=== PATIENT | male | born 1955 | race Caucasian/White ===

== ENCOUNTER → 2022-01-27 14:37 | Outpatient (CLI) | payer MEDICARE, OTHER, SELFPAY ==
[2022-01-27 15:42] LABS: Add Manual Diff / Slide Review NO; Basophils Absolute Auto 100 /uL (0-100); Eosinophils Absolute Auto 200 /uL (0-450); Eosinophils Percent Auto 3.3 % (2-4); Hematocrit 42.8 % (41-53); Hemoglobin 14.7 g/dL (13.5-17.5); Lymphocytes Absolute Auto 1700 /uL (1100-4500); Mean Corpuscular HGB Conc 34.3 % (30-36); Mean Corpuscular Hemoglobin 31.9 PG (26-34); Mean Corpuscular Volume 93.1 fL (80-100); Monocytes Absolute Auto 500 /uL (0-900); Monocytes Percent Auto 8.1 % (3-14); Neutrophils Absolute Auto 4200 /uL (1500-7000); Neutrophils Percent Auto 62.6 % (50-75); Platelet Count 385 X10^3/uL (150-400); Red Cell Distribution Width 13.7 % (11.6-14.8); White Blood Cell Count 6.6 X10^3/uL (4.5-11.0)
[2022-01-27 16:13] LABS: BUN Creatinine Ratio 15.2 (6-22); Blood Urea Nitrogen 14 mg/dL (9-20); Calcium 9.1 mg/dL (8.4-10.2); Carbon Dioxide 27 mmol/L (22-32); Chloride 105 mmol/L (98-107); Estimated Glomerular Filt Rate > 60 mL/min (>60); Glucose 94 mg/dL (80-110); HEMOLYSIS < 15 (0-50); Potassium 3.4 mmol/L (3.4-5.1); Sodium 139 mmol/L (137-145)
== END ==
PROVIDERS: Referring Provider Orthopaedic Surgery Orthopaedic Surgery of the Spine; Visit Provider Orthopaedic Surgery Orthopaedic Surgery of the Spine
DX: Z01.818 Encounter for other preprocedural examination (principal); Z01.812 Encounter for preprocedural laboratory examination
CPT/HCPCS: 36415; 80048; 85025; 93005; 93010

== ENCOUNTER → 2022-04-15 11:54 | Outpatient (CLI) | payer MEDICARE, OTHER, SELFPAY ==
[2022-04-15 12:59] LABS: Add Manual Diff / Slide Review NO; Basophils Absolute Auto 0 /uL (0-100); Basophils Percent Auto 0.6 % (0-2); Eosinophils Absolute Auto 200 /uL (0-450); Eosinophils Percent Auto 3.2 % (2-4); Hematocrit 45.4 % (41-53); Lymphocytes Absolute Auto 1400 /uL (1100-4500); Lymphocytes Percent Auto 21.5 % (25-40); Mean Corpuscular HGB Conc 33.1 % (30-36); Mean Corpuscular Hemoglobin 31.3 PG (26-34); Mean Corpuscular Volume 94.6 fL (80-100); Monocytes Absolute Auto 500 /uL (0-900); Neutrophils Absolute Auto 4500 /uL (1500-7000); Neutrophils Percent Auto 67.7 % (50-75); Platelet Count 388 X10^3/uL (150-400); Red Blood Cell Count 4.79 X10^6/uL (4.5-5.9); Red Cell Distribution Width 13.9 % (11.6-14.8); White Blood Cell Count 6.7 X10^3/uL (4.5-11.0)
[2022-04-15 13:15] LABS: Blood Urea Nitrogen 20 mg/dL (9-20); Calcium 9.3 mg/dL (8.4-10.2); Carbon Dioxide 29 mmol/L (22-32); Chloride 103 mmol/L (98-107); Estimated Glomerular Filt Rate > 60 mL/min (>60); Glucose 93 mg/dL (80-110); HEMOLYSIS < 15 (0-50); Potassium 4.4 mmol/L (3.4-5.1); Sodium 139 mmol/L (137-145)
== END ==
PROVIDERS: Referring Provider Orthopaedic Surgery Orthopaedic Surgery of the Spine; Visit Provider Orthopaedic Surgery Orthopaedic Surgery of the Spine
DX: Z01.812 Encounter for preprocedural laboratory examination (principal); M54.00 Panniculitis affecting regions of neck and back, site unspecified
CPT/HCPCS: 36415; 80048; 85025

== ENCOUNTER → 2022-05-01 12:18 | Outpatient (CLI) | payer MEDICARE, OTHER, SELFPAY ==
[2022-05-01 14:24] LABS: COVID19 -Nasal RAPID Negative (Negative)
== END ==
PROVIDERS: PCP Internal Medicine; Referring Provider Orthopaedic Surgery Orthopaedic Surgery of the Spine; Visit Provider Orthopaedic Surgery Orthopaedic Surgery of the Spine
DX: Z20.822 Contact with and (suspected) exposure to COVID-19 (principal)
CPT/HCPCS: 87635; C9803

== ENCOUNTER 2022-05-04 06:19 | Inpatient (IN) | payer MEDICARE, OTHER, SELFPAY ==
[2022-04-22 12:00] VITALS: BMI 22.6
[2022-05-04] VITALS (9 sets, daily range): BP systolic 121–160; BP diastolic 62–92; PULSE 95–124; RESP 14–21; TEMP 36.3–37.2; O2SAT 91–99; BMI 22.6
[2022-05-04] MEDS: LACTATED RINGERS 1,000 ML 42 ML IV ×3 (07:11→10:52)
--- NOTE | 2022-05-04 07:45 | PM.PREOP ---
Pre-operative Note COVID-19 COVID-19 status: Negative Result date/Date tested (Pos, Neg/Pending): 05/03/22 Criteria for continued procedure: Expected advancement of disease process, Possibility delay results in more complex future surgery or treatment, Increased loss of function, Continuing or worsening of significant or severe pain, Deterioration of the patient's condition or overall health and Delay expected to result in less-positive ultimate med/surg outcome Interval Note History & Physical reviewed/Exam performed by Physician: Yes Changes to H&P: No
[2022-05-04] MEDS: CEFAZOLIN 2 GM/100 ML PREMIX 100 ML IV (07:57)
--- NOTE | 2022-05-04 08:30 | SUR.OPER ---
Prone on spine table, head in foam head support, padded chest and pelvic supports, gel pad at knees, lower legs supported by pillows; nipples, genitalia and toes free of pressure, arms secured on foam padded arm boards at <90 degrees abduction. Tape over blanket at thigh secured to table.
[2022-05-04] MEDS: BUPIVACAINE 0.25% (PF) 30 ML, EPINEPHrine 0.3 MG INJ (08:39)
[2022-05-04] MEDS: BUPIVACAINE LIPOSOME 266 MG/20 ML VIAL INJ (08:40)
--- NOTE | 2022-05-04 12:12 | DI.RAD.S_ITS ---
PROCEDURE: XR LUMBAR SPINE 2-3V INDICATIONS: L4-5, L5-S1 TLIF TECHNIQUE: Two intraoperative fluoroscopic views of the lumbar spine were acquired. COMPARISON: None. FINDINGS: Fluoroscopy was used for hardware and disc spacer assessment. Bilateral transpedicular screws are seen in L4 and S1 and a unilateral pedicular screw at L5. Disc spacers appear in appropriate position. Hardware is intact. IMPRESSION: Intraoperative fluoroscopy for L4-5 L5-S1 TLIF. Dictated by: Yary Copeland M.D. on 05/04/2022 at 16:58 Approved by: Yary Copeland M.D. on 05/04/2022 at 16:59
--- NOTE | 2022-05-04 12:16 | P.OP_ITS ---
Operative Date/Time/Diagnoses Date of procedure: 05/04/22 Time of procedure: 07:45 Pre-op diagnosis: 1. L3-4, L4-5 spinal stenosis 2. Lumbar scoliosis 3. Lumbar spondylosis with radiculopathy Post-op diagnosis: same Procedure & Clinicians Procedure: 1. L3-4, L4-5 Postero-lateral and posterior interbody fusion 2. L3-4, L4-5 interbody cage placement. 3.L3-4, L4-5 decompressive laminectomy with bilateral facetecomies 4. L3-4, L4-5 Posterior segmental instrumentation 5. [place] of bone marrow from iliac crest 6. Utilization of microsurgical technique and operating microscope 7. Utilization of robotic assisted navigation Same procedure as scheduled: Yes Indications: Patient has been having chronic back pain and worsening lumbar radiculopathy. Patient failed multiple conservative management with worsening pain weakness and numbness in his lower extremity. Patient has been having difficulty performing activity of daily living. After discussing risks benefits of treatment options, patient elected proceed with surgery. Surgeon: Celsa Church Floor Representative: Maribel King Click Yes if Unassisted: No Anesthesia Type: General Operative Notes Closure Type: primary Prosthetic devices, grafts, tissues, transplants, or devices: Globus CREO MIS screws, Rise cages Applied: catheter Estimated Blood Loss (mL): 100 Blood products transfused: none Procedure in detail: Patient was seen in the preoperative area. Risks and benefits of the surgery was discussed with the patient. Informed consent was obtained from the patient and placed in the chart. Surgical site was marked. Patient was taken to the operative room. General anesthesia was administered. Prophylactic antibiotic was given to the patient less than 30 min before the incision was made. Patient was placed into a prone position on the Charles table. Patient's back was then prepped and draped in the sterile fashion. Time-out was performed at this time. After patient was prepped and draped, patient's PSIS was palpated and marked bilaterally. Small 1 cm incision was made over the PSIS for placement of the reference probes. Two trocar was placed into the PSIS 1 on each side. The reference probe was attached to the trocar of the reference apparatus. At this time the C-arm imaging was used to confirm AP and lateral of L3, L4-L5 vertebrae and merged the C-arm imaging using the [employer] robotic navigation system with the CT of the lumbar spine. After successful merging was completed and confirmed, skin marker was used to raul out the skin incision using the [employer]Parent robotic arm. Bilateral incision was made at this time. Pre templated trajectory was used and guided using the [employer] robotic navigation system for bilateral L3 L4, L5 pedicle screw placement. This was done by using the robotic arm to guide the high-speed bur to make a cortical ent ry point. Next a drill was placed also using the robotic arm and guided using the navigation system drilling partially through bilateral L3, L4, L5 pedicles. Next L3, L4, L5 pedicle screws it was pre templated and measured was placed onto the power otr flatbed driver and inserted into the pedicles bilaterally. After all 6 screws were placed C-arm imaging was taken of both AP and lateral to confirm the plac ement. Excellent placement of the screws were confirmed and a matched precisely with the pre planned screw placement using the navigation system. Patient has transitional level with rudimentary disc being named L5-S1 per radiology report. The nomenclature will be consistently used for this procedure. Diffusion is performed at the 2 most caudal multiple levels being called L3-4 L4-5. MARs retractor was inserted using [employer] ABivation guidence. Globus MARS retractors was placed inside the incision and docked onto the L3, L4 lamina. Using microsurgical technique and operating microscope, a L3, L4 laminectomy and L3-4, L4-5 facetectomy was performed using a Kerrison rongeur. Patient was found have severe lateral recess and neural foramen stenosis which was fully decompressed after the laminectomy facetectomy. More than 75% of the facets were removed during the process of decompression rendering L3-4, L4-5 level grossly unstable and required a fusion procedure at the same time. The disc space at L3-4, L4-5 was identified, and a total diskectomy was performed at L3- 4, L4-5 level. The endplates were decorticated using a rasp and shaver. The total diskectomy and decortication was performed at L3-4, L4-5 level in order to to accomplish a L3-4, L4-5 fusion. The local bone from the laminectomy and facetectomy was saved for local bone grafting. After the total diskectomy and decortication was completed, Trifecta bone graft material was combined with local bone that was harvested earlier. During the right-sided facetectomy and laminectomy, there was a small dural tear that was created using the Kerrison at the L3-4 level. There is minimal amount of CSF leakage. DuraGen and Tisseel was used to patch the dural defect. There is no CSF leakage throughout the procedure. At this time, a separate skin is incision was made over the iliac crest. A Jamshidi needle was inserted into the iliac crest through a separate skin incision. 5 cc of bone marrow aspiration was obtained through the separate skin incision using a Jamshidi needle from the iliac crest. The bone marrow aspiration was combined with local bone and the Trifecta bone grafting material. The bone grafting material was placed into the L3-4, L4-5 interbody space along with expandable cages. One cage each was inserted into the L3-4 L4-5 interbody space along with bone graft material. The cage was expanded to its maximum height using the torque limiting screwdriver. The disc preparation as well as the cage insertion were also performed under navigation guidance. After the cage was placed, AP and lateral C-arm imaging was taken to confirm placement of the cage and excellent position was confirmed. Globus MARS retractor was inserted and docked onto the L3-4, L4-5 posterolateral gutter on the right side. Using the power drill, posterior-lateral decortication was performed at L3-4, L4-5 level until bleeding cortical bone was identified. The remaining bone grafting material was placed into the L3-4, L4-5 posterior lateral gutter he order to accomplish posterolateral fusion at the L3- 4, L4-5 level. At this time the tulips were attached to the L3, L4-L5 pedicle screw shanks. After measuring the length of the rods, they were inserted into the tulips of the pedicle screws and locked in place using locking caps and torque limiting screwdriver bilaterally. Total 6 caps and 2 titanium rods was used in order to complete the posterior instrumentation construct. After all the hardware was placed, and confirmed with AP and lateral C-arm imaging, the wound was then irrigated with sterile normal saline and packed with Ray-Ernesto gauze for 3 min to accomplish hemostasis. After the gauze was removed the deep fascia was closed with #1 Vicryl suture. The subcutaneous layer was closed with 2-0 Vicryl. The skin was closed with skin clemente. Patient tolerated the procedure well. There were no complications. Neuro monitoring system was used to monitor patient's neurologic status thr oughout entire procedure. There was no disturbance of the neural monitoring signals throughout the case. Patient will be prophylactically placed into the foot flat position until tomorrow morning 6:00 a.m. Patient can then start to elevate his head of the bed as tolerated and perform physical therapy as tolerated. Complications: none Post-operative Condition: stable Disposition: PACU Plan for aftercare: Admit to inpatient hospital
[2022-05-04] MEDS: HYDROCODONE/ACET 5/325 TABLET 1 TAB PO (12:54)
[2022-05-04] MEDS: OXYCODONE IR 5 MG TABLET 10 MG PO ×2 (14:10→18:21)
[2022-05-04] MEDS: hydrOXYzine pamoate 25 MG CAPSULE PO (14:10)
[2022-05-04] MEDS: CLINDAMYCIN 600 MG/50 ML PIGGYBACK 50 MG IV ×2 (14:19→21:07)
[2022-05-04] MEDS: HYDROMORPHONE 0.5 MG INJ IV ×2 (16:23→21:06)
[2022-05-04] MEDS: ACETAMINOPHEN 325 MG TABLET 650 MG PO (16:23)
[2022-05-04] MEDS: PANTOPRAZOLE DR 20 MG TABLET PO (21:05)
[2022-05-04] MEDS: LORazepam 0.5 MG TABLET 0.25 MG PO (21:08)
[2022-05-05] VITALS (7 sets, daily range): BP systolic 126–132; BP diastolic 72–79; PULSE 74–130; RESP 17–20; TEMP 37–38.7; O2SAT 71–100
--- NOTE | 2022-05-05 00:38 | PC.NURSE ---
At approx 20:00, this RN was notified by ZAHIDA of rapid heart rate sustaining 130-140 >10 minutes. Regular rhythm, no history of tachycardia or afib, asymptomatic. BP, temp, RR all WNL. SPO2 95% on 2 L NC. +Circulation and sensation all four limbs. No signs of active bleeding. Pt extremely agitated on this RN's entrance. Pt upset about being unable to use personal nicotine lozenges. Prior shift offered nicotine patch, reported that patient refused. This RN asked if he would be interested in a patch- pt said no. This RN informed the pt that the on-call would be contacted about his rapid heart rate and would mention the nicotine lozenges, just in case. Pt upset about strict flat bedrest. This RN educated pt as well as possible, but patient resistant to listening and remained agitated. Pt states that he is going to be an asshole, that the doctors weren't adhering to the discussed pre-surgery treatment plan, and informed this RN of her incompetence. This RN informed the patient that there was a possibility that the doctor may order an EKG or telemetry or medications. Pt stated oh, more torture and informed this RN that he would refuse all additional care. This RN informed the patient that regardless of whether or not he accepted treatment, the on-call would have to be notified. On-call PAULIE was contacted at 20:20. Informed him of situation and patient's unwillingness to cooperate. Requested this RN attempt to order an EKG, and if obtained, a hospitalist consult would be ordered. Nicotine lozenges were denied d/t increased heart rate and post-op status. Pt once again refused EKG and other treatment. This RN sat down with patient and discussed current plan of care. After a long discussion, patient agreeable to certain interventions, including strict flat bedrest, pain medication, IV antibiotics, SPO2 and HR monitoring via vital signs machine only, and selected post-op medications. Refused SCDs, Q2T, medications for stooling. Pt in much better mood, and apologetic. On-call informed of refusal and subsequent vital signs. Heart rate slowly decreasing. At 0015, sustaining 90-95. Pt's O2 bumped up to 4L d/t desat during sleep. Pain controlled with current medication regime. Will continue to monitor.
[2022-05-05] MEDS: HYDROMORPHONE 0.5 MG INJ IV ×3 (01:48→16:54)
[2022-05-05] MEDS: hydrOXYzine pamoate 25 MG CAPSULE PO ×3 (01:48→16:56)
[2022-05-05] MEDS: ACETAMINOPHEN 325 MG TABLET 650 MG PO ×3 (04:23→20:15)
[2022-05-05 06:33] LABS: Hematocrit 38.7 % (41-53); Hemoglobin 13.3 g/dL (13.5-17.5)
--- NOTE | 2022-05-05 07:42 | PM.PNPO.1 ---
Subjective Subjective Date Patient Seen: 05/05/22 Time Patient Seen: 07:43 Interval history: Patient's pain is mild at rest. States his pain is more severe with any movement. Patient has not been up out of bed yet. Patient does not have anybody home available to assist him. Exam Vital Signs (past 8 hours): - 05/05/22 00:00 05/05/22 04:00 Temperature 99.6 F 98.6 F Pulse Rate 91 H 94 H Respiratory Rate 17 19 Blood Pressure 132/72 128/79 Pulse Oximetry 100 96 Oxygen Flow Rate 4 4 Oxygen Delivery Method Nasal Cannula Oxygen Flow Rate 4 Narrative Exam Narrative: 66-year-old male resting comfortably in bed in no apparent distress. Motor functions intact bilateral lower extremities. Sensation grossly intact to light touch bilateral lower extremities. Const General: cooperative and comfortable Nutritional Appearance: average body habitus Resp Effort & Inspection: normal respiratory effort and able to speak in complete sentences Objective Labs Result Diagrams: 05/05/22 06:18 Labs: Laboratory Results - last 24 hr 05/05/22 06:18 Hgb 13.3 L Hct 38.7 L PFSH Medical History Anxiety COPD (chronic obstructive pulmonary disease) Easy bruisability Eczema Emphysema of lung GERD (gastroesophageal reflux disease) HTN (hypertension) Kidney stones Nasal sinus polyp Panic attacks Sciatica Spinal stenosis Spondylolisthesis Thin skin Surgical History Cataract extraction status, left eye H/O vasectomy Hx of colonoscopy (03/2021) Hx of excision of Zenker's diverticulum (02/12/22) Hx of lithotripsy (01/14/22) Hx of tonsillectomy Social History household members: none Smoking Status: Former smoker alcohol intake: current Assessment & Plan Post-op Postoperative Procedures: Procedures Operation Date: 05/04/22 07:45 Actual Procedure Side Surgeon p L3-4, L4-5 TLIF w. posterior instrumentation-Robot Not Applicable Celsa Church MD Postoperative day: 1 Postoperative status narrative: Stable status post L3-L4, L4-L5 fusion Postoperative plan narrative: Mobilize with physical therapy, limit bending, twisting, lifting Discontinue Mcdermott catheter Multimodal pain management Disposition home likely 1-2 days. Quality VTE Deep Vein Thrombosis/Pulmonary Embolism Present on Admission: No
[2022-05-05] MEDS: PANTOPRAZOLE DR 20 MG TABLET PO ×2 (07:44→20:15)
[2022-05-05] MEDS: OXYCODONE IR 5 MG TABLET 10 MG PO ×5 (07:45→23:14)
[2022-05-05] MEDS: DOCUSATE 100 MG CAPSULE PO ×2 (07:45→20:15)
[2022-05-05] MEDS: TAMSULOSIN 0.4 MG CAPSULE PO (08:25)
[2022-05-05] MEDS: lisinopriL 5 MG TABLET 2.5 MG PO (08:26)
--- NOTE | 2022-05-05 08:51 | PT.IIE ---
Current Diagnoses Spondylolisthesis, lumbar region (05/04/22) Spinal stenosis, lumbar region with neurogenic claudication (05/04/22) Surgery Performed Operation Date: 05/04/22 07:45 Actual Procedures p L3-4, L4-5 TLIF w. posterior instrumentation-Robot(Not Applicable) - Celsa Church MD Surgical History (Last Reviewed 05/05/22 @ 07:44 by Ramiro Rodriguez PA-C) Cataract extraction status, left eye H/O vasectomy Hx of colonoscopy (03/2021) Hx of excision of Zenker's diverticulum (02/12/22) Hx of lithotripsy (01/14/22) Hx of tonsillectomy Medical History (Last Reviewed 05/05/22 @ 07:44 by Ramiro Rodriguez PA-C) Anxiety COPD (chronic obstructive pulmonary disease) Easy bruisability Eczema Emphysema of lung GERD (gastroesophageal reflux disease) HTN (hypertension) Kidney stones Nasal sinus polyp Panic attacks Sciatica Spinal stenosis Spondylolisthesis Thin skin Physical Therapy Inpatient Evaluation/Re-Eval M1 PT/OT-IP Prior Functional Status Start: 05/05/22 09:01 Freq: NEEDED Status: Active Protocol: Document 05/05/22 09:01 [facility] (Rec: 05/05/22 09:18 [facility] [id number]) Medical Review Prior Functional Status Medical History Reviewed Yes Diet/Fluid Consistency Regular Communication WNL Mobility and Gait indep w/o AD Activities of Daily Living and IADL's indep Social History Household Members none Living Arrangements RV Number of Floors (Floors) One Floor Number of Stairs To Enter/Railing? 3 PHILL w/rail outside, 3 PHILL w/ rail inside Home Environment Standard Height Toilet,Walk in Shower Home Equipment Stonemason Apprentice,Grab Bars In Shower Additional Social History Comment has some friends that may be able to help little bits M2 PT-IP Current Condition Start: 05/05/22 09:01 Freq: NEEDED Status: Active Protocol: Document 05/05/22 09:01 [facility] (Rec: 05/05/22 09:18 [facility] [id number]) Physical Therapy Current Condition Current Condition Evaluation Date 05/05/22 Treatment Diagnosis L3-4, L4-5 TLIF Onset Date 05/04/22 M3 PT-IP Subjective Start: 05/05/22 09:01 Freq: NEEDED Status: Active Protocol: Document 05/05/22 09:01 [facility] (Rec: 05/05/22 09:18 [facility] [id number]) Subjective Physical Therapy Visit Type Type Initial Evaluation Visit Start Time 07:36 Visit Stop Time 08:10 Total Visit Minutes 34 Number of ENROLLMENT NURSE Visits 0 Therapy Pain Assessment Pain When Pain Assessed During Mobility Pain Present Pain Present Pain Reported M4 PT-IP Mobility and Gait Start: 05/05/22 09:01 Freq: NEEDED Status: Active Protocol: Document 05/05/22 09:01 [facility] (Rec: 05/05/22 09:18 [facility] [id number]) PT-Bed Mobility Assessment Rolling Type of Rolling Log Rolling Level of Assist Standby Assistance Supine to Sit Supine to Sit Contact Guard Assistance, Bedrails Scooting Scooting to Edge of Bed Standby Assistance PT-Transfer Assessment Sit to and From Stand Sit to and from Stand Standby Assistance,Use of Upper Extremities Equipment Transfer Assistive Device Gait Belt,Front Wheeled Walker Comments Mobility Comments Bed brought back flat (was elevated for pt in room); log roll to EOB CGA w/max cues, pt sat EOB and able to put on socks by putting opp leg onto leg w/max cues to stay upright and not slouch. Sat to take meds from RN. Sit to stand SBA w/cues to FWW. Pt then amb about 200ft w/FWW CGA w/noting only some back pain but felt good to be moving. He sat in chair w/pillow support at back and call light in reach. Pt wanted to stand to try to urinate and stood at FWW SBA and left w/BOOK PUBLISHER . Gait Assessment Gait Gait Assistance Required: Standby Assistance Distance (Feet) 200 Assistive Devices Assistive Device Gait Belt,Front Wheeled Walker Orthotic/Prosthetic Devices or Brace: No Factors Limiting Gait Function Factors Limiting Gait Function Pain Stair Climbing Assessment Comments Stair Climbing Comments n/t PT-Balance Assessment Sitting Balance and Reactions Static Sitting Balance Ability Normal Dynamic Sitting Balance Ability Normal Standing Balance and Reactions Static Standing Balance Ability Good Dynamic Standing Balance Ability Good Device Used FWW M5 PT-IP Objective Assessments Start: 05/05/22 09:01 Freq: NEEDED Status: Active Protocol: Document 05/05/22 09:01 [facility] (Rec: 05/05/22 09:18 [facility] [id number]) Orientation Orientation/Cognition Level of Alertness Alert Language Function Ability No Deficits Noted Safety Awareness Understands Safety Issues Memory Description No Deficits Noted Gross Range of Motion Upper Extremity ROM Assessment Within Functional Limits Lower Extremity ROM Assessment Within Functional Limits Strength Lower Extremity Strength Assessment Within Functional Limits M6 PT-IP Treatment Start: 05/05/22 09:01 Freq: NEEDED Status: Active Protocol: Document 05/05/22 09:01 [facility] (Rec: 05/05/22 09:18 [facility] [id number]) Physical Therapy Treatment Education Education Provided Precautions,Weight Bearing Status,Post-Op Packet,Safety Other Treatments Other Treatment Performed pt educated taht he should not drive himself home. Encouraged pt to contact friends about helpign him get hoem along w/helping him get assisted equipment as needed M7 PT-IP Assessment and Plan Start: 05/05/22 09:01 Freq: NEEDED Status: Active Protocol: Document 05/05/22 09:01 [facility] (Rec: 05/05/22 09:18 [facility] [id number]) PT Summary Assessment and Plan Potential Rehabilitation Potential Excellent Status of Condition at Evaluation Evolving Summary Impairments Pain,ROM,Strength,Balance,Bed Mobility,Transfers,Gait, Activity Tolerance Assessment Summary Pt is day one s/p TLIF to L3-4 , L4-5 and is very eager to improve, but does not have a great house set up as he lives alone in a 5th wheel and does not have room for a walker in it. He has limited assisted equipment at this time and may need further equipment to be safe at home. He is educated on precautions and required reminders throughout session to keep back straight and avoid bending and twisting. Pt will require cont PT prior to reeturn home to be safe in home environment Goals Bed Mobility Goal Independent Transfer Goal Independent Gait Goal Independent Gait Distance 200 Other Goals up/down 6 stairs w/1 rail SBA Days to Meet Goals 4 Frequency of Treatment Frequency Of Treatment Twice a Day Treatment Plan Physical Therapy Treatment Plan Bed Mobility Training,Transfer Training,Gait Training, Therapeutic Exercise,Balance Retraining,Post Op Education, Discharge Planning,Hot or Cold Pack,Neuromuscular Re-ed, Manual Therapy Other Recommendations and Next Treatment work on stairs & review log Focus roll and precautions, try cane as pt will not be able to use walker (small distance) Precautions Lumbar Precautions Log Roll,No Twisting,Limit Bending,Lifting Restriction of 10 lbs,Gait Belt above Incisional Area Weight Bearing Status Weight Bearing Status Weight Bear as Tolerated Recommendations To Nursing Amount of Assist Needed Standby Assistance Discharge Recommendations PT Discharge Recommendations Home,Outpatient PT Equipment Needed for Home Before possible shower chair, long Discharge handle shower brush, AD (cane , maybe walker for out of house) Transportation Needs at Discharge Private Vehicle
--- NOTE | 2022-05-05 09:18 | PT.OIE ---
Current Diagnoses Spondylolisthesis, lumbar region (05/04/22) Spinal stenosis, lumbar region with neurogenic claudication (05/04/22) Past Medical History (Last Reviewed 05/05/22 @ 07:44 by Ramiro Rodriguez PA-C) Anxiety COPD (chronic obstructive pulmonary disease) Easy bruisability Eczema Emphysema of lung GERD (gastroesophageal reflux disease) HTN (hypertension) Kidney stones Nasal sinus polyp Panic attacks Sciatica Spinal stenosis Spondylolisthesis Thin skin Past Surgical History (Last Reviewed 05/05/22 @ 07:44 by Ramiro Rodriguez PA-C) Cataract extraction status, left eye H/O vasectomy Hx of colonoscopy (03/2021) Hx of excision of Zenker's diverticulum (02/12/22) Hx of lithotripsy (01/14/22) Hx of tonsillectomy Visit Care Team Role Provider Type Diana Vidales MD Primary Care Provider Non-Staff Specialty: Pediatrics Address: [address] [place] [address], [id number] Email: Celsa Church MD Admit Provider Physician Attending Provider Referring Provider Specialty: Orthopedics Orthopedic Surgery Address: [address] [place] [address], [id number] Email: [email or web address]
--- NOTE | 2022-05-05 10:44 | OT.IP.EVAL ---
Current Diagnoses Spondylolisthesis, lumbar region (05/04/22) Spinal stenosis, lumbar region with neurogenic claudication (05/04/22) Surgery Performed Operation Date: 05/04/22 07:45 Actual Procedures p L3-4, L4-5 TLIF w. posterior instrumentation-Robot(Not Applicable) - Celsa Church MD Past Medical History (Last Reviewed 05/05/22 @ 07:44 by Ramiro Rodriguez PA-C) Anxiety COPD (chronic obstructive pulmonary disease) Easy bruisability Eczema Emphysema of lung GERD (gastroesophageal reflux disease) HTN (hypertension) Kidney stones Nasal sinus polyp Panic attacks Sciatica Spinal stenosis Spondylolisthesis Thin skin Surgical History (Last Reviewed 05/05/22 @ 07:44 by Ramiro Rodriguez PA-C) Cataract extraction status, left eye H/O vasectomy Hx of colonoscopy (03/2021) Hx of excision of Zenker's diverticulum (02/12/22) Hx of lithotripsy (01/14/22) Hx of tonsillectomy Occupational Therapy Inpatient Evaluation/Re-Eval M1 PT/OT-IP Prior Functional Status Start: 05/05/22 09:01 Freq: NEEDED Status: Active Protocol: Document 05/05/22 11:10 [facility] (Rec: 05/05/22 14:08 [facility] [id number]) Medical Review Prior Functional Status Medical History Reviewed Yes Diet/Fluid Consistency Regular Communication WNL Mobility and Gait indep w/o AD Activities of Daily Living and IADL's indep Social History Household Members none Living Arrangements RV Number of Floors (Floors) One Floor Number of Stairs To Enter/Railing? 3 PHILL w/rail outside, 3 PHILL w/ rail inside Home Environment Standard Height Toilet,Walk in Shower Home Equipment Event Sales Representative,Grab Bars In Shower Additional Social History Comment has some friends that may be able to help little bits M2 OT-IP Current Condition Start: 05/05/22 13:48 Freq: Status: Active Protocol: Document 05/05/22 11:10 [facility] (Rec: 05/05/22 14:08 [facility] [id number]) Occupational Therapy Current Condition Current Condition Evaluation Date 05/05/22 Treatment Diagnosis S/p L3-4, L4-5 TLIF Diagnosis Onset Date 05/04/22 M3 OT- IP Subjective and Pain Start: 05/05/22 13:48 Freq: Status: Active Protocol: Document 05/05/22 11:10 [facility] (Rec: 05/05/22 14:08 [facility] [id number]) OT- Subjective Occupational Therapy Visit Type Type Initial Evaluation Visit Start Time 10:10 Visit Stop Time 10:44 Total Visit Minutes 34 Occupational Therapy Visit Comments Patient Comments Pt agreed to get up. Patient/Caregiver Goals To go home. OT Pain Assessment Pain When Pain Assessed At Rest Pain Present Pain Present Pain Reported Location lower back Intensity 3 Scale Used Numeric (0 - 10) M4 OT- IP ADL's Start: 05/05/22 13:48 Freq: Status: Active Protocol: Document 05/05/22 11:10 [facility] (Rec: 05/05/22 14:08 [facility] [id number]) OT [id number] Comments OT Self-Feeding Comments Not at meal time. OT ADL-Grooming General Evaluation Grooming Ability Independent OT ADL-Oral Care General Eval Oral Care Ability Independent Comments Oral Care Comments initial education best to spit into a cup to best follow his back precautions OT ADL-Dressing General Eval Lower Body Dressing Ability Standby Assistance Comments OT Dressing Comments Pt able to cross his legs over to do his socks and underwear but would benefit from a occupational health and safety officer for increased ease. Pt educated to sit for safety for dressing needs. OT ADL-Toileting Comments OT Toileting Comments Pt able to occupational health and safety officer comfortable while on the toilet. OT ADL-Bathing Comments OT Bathing Comments Pt would benefit from a shower chair. Pt states will just sponge off for now. M5 OT- IP IADL's Start: 05/05/22 13:48 Freq: Status: Active Protocol: Document 05/05/22 11:10 [facility] (Rec: 05/05/22 14:08 [facility] [id number]) OT-Instrumental Activities of Daily Living Home Safety Awareness Home Safety Comments Pt states has decreased short term memory issues and therefore would be beneficial for someone to help remind his to incorporate his back precautions. As pt is a bit impulsive at times during mobility needs. Also suggested for pt to post signs in his house to help remind him of his precautions. M6 OT- IP Functional Cognition Start: 05/05/22 13:48 Freq: Status: Active Protocol: Document 05/05/22 11:10 [facility] (Rec: 05/05/22 14:08 [facility] [id number]) Cognitive Factors Limiting Selfcare Function Cognitive Ability Level of Alertness Alert Patient Orientation Name,Place,Situation Attention Span Ability Capable of Focused Attention, Capable of Sustained Attention Ability to Follow Commands Able to Follow One Step Commands Memory Description Short Term Impaired Cognitive Comments Cognitive Assessment Comments Pt needing reminders and re- educations for back precautions needs for ADl and mobility needs. In addition vc for log rolling needs. OT- Vision and Hearing OT- Hearing Assessment OT- Hearing Assessment WFL OT- Vision Assessment Visual Acuity WFL M7 OT- IP Mobility and Balance Start: 05/05/22 13:48 Freq: Status: Active Protocol: Document 05/05/22 11:10 [facility] (Rec: 05/05/22 14:08 [facility] [id number]) OT- Bed Mobility Assessment Supine to Sit Supine to Sit Assist Independent Sit to Supine Sit to Supine Assist Independent OT-Transfer Assessment Sit to and From Stand Sit to and from Stand Independent Transfers Transfer Ability Independent Technique Transfer Destination Bed,Chair,Toilet Transfer Technique Stand Step Pivot Devices Transfer Assistive Devices Gait Belt,Front Wheeled Walker Comments Mobility Comments Pt able to use FWW with mod I and without walker able to take a few step with close SBA but a little unsteady on his feet. PT to try use of cane later. OT- Balance Assessment Sitting Balance and Reactions Static Sitting Balance Ability Normal Dynamic Sitting Balance Ability Good Standing Balance and Reactions Static Standing Balance Ability Good Dynamic Standing Balance Ability Fair M8 OT- IP Objective Assessments Start: 05/05/22 13:48 Freq: Status: Active Protocol: Document 05/05/22 11:10 [facility] (Rec: 05/05/22 14:08 [facility] [id number]) OT-Muscle Tone Assessment Muscle Tone WNL Yes M9 OT- IP Assessment and Plan Start: 05/05/22 13:48 Freq: Status: Active Protocol: Document 05/05/22 11:10 [facility] (Rec: 05/05/22 14:08 [facility] [id number]) OT Summary Assessment and Plan Potential Rehabilitation Potential Good Analytic Complexity at Evaluation Low Summary OT Impairments Pain,Balance,Functional Cognition,Functional Mobility, Dressing,Toileting,Bathing Progress Towards Goals Progressing Toward Goals Assessment Summary Pt main barriers are decreased short term memory, needing cues to follow his back precautions and pain. Pt now agreeing that he will not be driving home at this time. Pt will benefit from assist at home for IADl needs, showering and remind pt to follow his back precautions. Pt states has no one to assist him. Also suggested to have back precautions posted in his 5th wheel to also try to remind him to follow his back precautions. Goals Toileting Goal Independent Bathing Goal Independent Shower Transfer Goal Independent Patient/Caregiver Education Goal Demonstrate Post-Op Precautions Days to Meet Goals 2 Frequency of Treatment Frequency Of Treatment Once a Day Treatment Plan OT Treatment Plan ADL Training,Functional Mobility,Patient/Family Education,Discharge Planning Discharge Recommendations OT Discharge Recommendations Home with Assistance Transportation Needs at Discharge Private Vehicle
[2022-05-05] MEDS: TRELEGY ELLIPTA 1 EACH INH (12:45)
--- NOTE | 2022-05-05 12:54 | CM.DANOTE ---
DCP/assessment: Reviewed chart. Patient is a 66yr old male [facility] elective TLIF performed by Dr. Church on 05-05-22. PCP is Diana Vidales. Primary payor is 1)Medicare 2) for [facility]. Patient is inpatient status. Met with patient this AM explained CM/SW role. Patient in the munson ambulating with FWW and RN. Patient initially thought that he would go to [facility] Living [facility] upon d/c however, patient ambulating independently in the hallway. Patient agreeable to home and would like home health for the first few weeks. REINFORCING METAL WORKER spoke with Ortho/Cada and she reports that she will make Dr. Church/Shaquille aware. F2F completed and signed. REINFORCING METAL WORKER asked DUNCAN/Jesi to initiate HH with assigned agency for the week which is [facility] . Anticipate d/c tomorrow 05-06-22. Patient reports that he will call around today for transportation. Patient believes that he can call friend's for ride. KJS Discharge Planning/Care Management CM Discharge Assessment Start: 05/05/22 12:47 Freq: Status: Active Protocol: Document 05/05/22 12:47 [facility] (Rec: 05/05/22 12:53 [facility] [id number]) Discharge Planning Assessment Assigned Technician Biological Health JAYLEN Benjamin Contact Information Angie Brooks (sister) # [phone] Advance Directives? No History Provided By Patient,Medical Record Prior Living Arrangements RV Household Members none Type of transporation used prior to Drives own vehicle admit Independent with ADL's Yes Is patient alert and oriented? Yes Caregiver for Another No Comment Patient uses no devices at baseline. Barriers to Discharge No Discharge Plan Home with Home Health Referrals Initiated Home Health Medicare Choice List Provided Yes SNF/HH Preference Patient has no preference in home health agencies. Therefore, referral made to [facility] (they are assigned this week). Whiteboard Updated in Patient Room with Yes name and ext. # of Technician Biological Health Review Status In Process Next Review Type Continued Stay Review Pre-Anesthesia Assessment Start: 02/17/22 08:27 Freq: Status: Active Protocol: Document 04/22/22 12:00 [facility] (Rec: 04/21/22 14:49 [facility] [id number]) Pre-Anesthesia Assessment Preferred Name Von Patient Information Reviewed Via Phone Assessment Assessment Completed With Patient Diagnostic Results BMP/CMP,CBC,EKG Comment Labs/ECG @ [facility] 04/15/22, COVID screen @ [facility]-needs to schedule Primary Care Provider Diana Vidales Seen Specialist in Last 12 Months Yes Specialist Seen Orthopedist,Hris Specialist Comment Pulmonary pre-op clearance scanned Primary Language Tam[employer] Catering Sous Chef Required No Height 167.64 cm Weight 63.503 kg Body Mass Index (BMI) 22.6 Hearing Ability Normal Visual Assist None Dentition Type Partial- Lower,Full- Upper Barriers to Learning None Hx Anesthesia Reactions No Hx Family Anesthesia Reaction No Hx Malignant Hyperthermia No Hx Blood Transfusions No Anesthesia Review Requested No alcohol intake current alcohol intake frequency holidays/special occasions only Smoking Status Former smoker how long ago did patient quit smoking Quit approx 5 years ago Substance Use Type does not use Pain Present Pain Reported Musculoskeletal Symptoms Abnormal Gait,Back Pain, Difficulty Walking,Radiating Pain into Limb History of Falling (Recent or History of No ) Patient is completely paralyzed or No completely immobile Mental Status Oriented to own ability Is patient on oxygen? No Does patient have ALFONSO/SOB Yes: COPD Hx Sleep Apnea No Currently Taking a Beta Clarke No Hx Chest Pain Yes: Nothing current Hx SOB Yes: Hx COPD Hx Syncope or Dizziness Yes: Nothing current Anti-Coagulant Therapy No Has a Physical Therapy Aid No Cardiac Testing No Hx Pacemaker/ICD No Pacemaker Rep Required? No Diet Type At Home Regular Dysphagia No Gastrointestinal Symptoms Reflux Bladder Pattern Frequency,Nocturia,Urgency Urinary Catheter Present No Hx Urinary Self Catheterization No Diabetes No Hx Drug Resistant Organism No Presence of External or Internal Medical Yes: Left eye IOL Devices Have you had any close contact with No someone diagnosed with COVID-19? Received a COVID vaccine? Yes Received all doses? Yes Marital Status Lives With none Current Living Arrangements RV Support System None Does the Patient Have Assistance After No Surgery Patient Discharge Plan Description Senior Living Facility/Rehab Comment Pt advised possible 2 day length of stay per surgeon Additional comment Pt would like to go to a SNF at discharge, lives alone, no available help Feels Safe in Current Environment Yes Been Physically Hurt or Threatened By a No Person in Current Environment Do you have thoughts of harming yourself None or others? Are you currently considering suicide? No Do you have a plan to hurt yourself or No Plan others? Do You Have Any Spiritual Beliefs That No May Affect Your HC Choices? Do You Have Any Cultural Practices That No May Affect Your HC Choices? Who Can We Speak to About Patient's Care Family, friends Identifying Code for Release of Patient Declines to issue Information Health Care Proxy/Next of Kin Angie (sister) Health Care Proxy Emergency Contact Name Angie (sister) Emergency Contact Advance Directives? No Power of Block Mechanic No PAC Instructions Durable medical equipment, Medications to take/avoid, Nasal antibiotic,No ETOH/ petroleum product on skin DOS, NPO,Post-op transportation,Pre -surgical wash,Sturdy shoes/ comfortable clothes,Do not bring valuables and remove jewelry Comment Pt plans to drive himself to the hospital and leave his car in ER lot
--- NOTE | 2022-05-05 17:20 | PT-IP ANOTE ---
Pt is eating dinner and not available for physical therapy treatment.
[2022-05-05] MEDS: SENNOSIDES 8.6 MG TABLET 17.2 MG PO (20:15)
[2022-05-05] MEDS: LORazepam 0.5 MG TABLET 0.25 MG PO (20:15)
[2022-05-06] VITALS (8 sets, daily range): BP systolic 92–128; BP diastolic 44–71; PULSE 77–114; RESP 15–18; TEMP 36.1–38; O2SAT 92–96
--- NOTE | 2022-05-06 01:33 | PC.NURSE ---
NOC Shift Note- Patients vital signs taken at start of shift at 1945. Temp of 101.3 noted. socks removed and left open to air. PRN PO Tylenol given, temp checked again with tylenol dose, temp at 101.7. upon recheck 45 minutes later temp at 98.6. BP WNL. Pulse tachy between 119 and 144. EKG ordered by Dr. Segovia, patient agreed. EKG reading= sinus tach. will monitor pulse. Patient was found to be on room air. O2 reading at 71% with blue lips noted, and increased confusion. O2/NC/3-4L placed. O2 slowly increased. Elevated head of bed up more, and encouraged patient to used incentive spirometer and to take deep breaths. Patient placed to continuous pulse ox to monitor. RT did a eval and treat per Dr Segovia, RT advise to keep monitoring with no additional interventions at this time. Patients level of confusion began to slowly improve, and lip changed from blue to pink. Blood cultures ordered per Dr. Segovia due to elevated temp. Blood drawn and cultures sent to lab. Safety measures in place. Patient agrees to call for assistance. Rogerio broussard and phone within reach. Will continue to monitor.
[2022-05-06] MEDS: OXYCODONE IR 5 MG TABLET 10 MG PO (06:32)
[2022-05-06] MEDS: TRELEGY ELLIPTA 1 EACH INH (08:01)
[2022-05-06] MEDS: DOCUSATE 100 MG CAPSULE PO ×2 (08:04→21:40)
[2022-05-06] MEDS: PANTOPRAZOLE DR 20 MG TABLET PO ×2 (08:04→21:40)
[2022-05-06] MEDS: TAMSULOSIN 0.4 MG CAPSULE PO (08:04)
[2022-05-06] MEDS: lisinopriL 5 MG TABLET 2.5 MG PO (08:04)
[2022-05-06] MEDS: IBUPROFEN 600 MG TABLET PO ×3 (08:05→19:11)
--- NOTE | 2022-05-06 08:05 | DI.RAD.S_ITS ---
PROCEDURE: XR CHEST 1V INDICATIONS: new onset fever, hypoxia TECHNIQUE: One view of the chest was acquired. COMPARISON: [facility], CT, CT LUMBAR SPINE WITHOUT CONTRAST, 12/25/2021, 17:03. FINDINGS: Surgical changes and devices: None. Lungs and pleura: Minimal streaky opacity at the lung bases. Suspect emphysematous change. No consolidation identified. No pleural effusions or pneumothorax. Mediastinum: Mediastinal contours appear normal. Heart size is normal. Bones and chest wall: No suspicious bony lesions. Overlying soft tissues appear unremarkable. IMPRESSION: No consolidation identified. Emphysematous change. Dictated by: Ruben Kong M.D. on 05/06/2022 at 9:54 Approved by: Ruben Kong M.D. on 05/06/2022 at 9:55
--- NOTE | 2022-05-06 08:13 | PM.CN ---
History of Present Illness Consult details Date Patient Seen: 05/06/22 Time Patient Seen: 11:51 Chief complaint: TLIF Narrative: Wes Brooks is a 66yo male with PMH of COPD, HTN, GERD, anxiety with panic attacks, BPH and spinal stenosis who is POD 2 from L3-L4 fusion with Dr. Church who I was asked to see for new-onset fever to 101.7F and hypoxia requiring 4L NC. Patient currently feels well and is surprised he is needing oxygen. Says he occasionally gets fevers at home but for him 98.6F is a fever since he runs at 97F at baseline. He denies CP, cough, SOB, abd pain, NV or diarrhea. Does indorse some dysuria since the camacho was removed after surgery. Was up walking around the unit earlier and feels pretty good overall. Meds Home Medications and Allergies Home Medications Medication Instructions Recorded Confirmed Type albuterol sulfate 90 mcg/actuation 2 puff inhalation DAILY PRN 04/21/22 05/04/22 History aerosol inhaler Shortness Of Breath fluticasone fur. 100 mcg-umeclid 1 inh inhalation DAILY 04/21/22 05/04/22 History 62.5 mcg-vilant 25 mcg inhalat.powder (Trelegy Ellipta) ibuprofen 600 mg tablet 600 mg PO BID PRN Pain 04/21/22 05/04/22 History lisinopril 2.5 mg tablet 2.5 mg PO DAILY 04/21/22 05/04/22 History lorazepam 0.5 mg tablet 0.25 mg PO BEDTIME 04/21/22 05/04/22 History omeprazole 20 mg tablet,delayed 20 mg PO BID 04/21/22 05/04/22 History release tamsulosin 0.4 mg capsule 0.4 mg PO DAILY 04/21/22 05/04/22 History tramadol 50 mg tablet 50 mg PO BID PRN Pain 04/21/22 05/04/22 History Allergies Allergy/AdvReac Type Severity Reaction Status Date / Time Penicillins AdvReac Severe Sweating, Verified 05/04/22 06:57 delirious Review of Systems Review of Systems Narrative: All other systems reviewed with the patient and are negative unless otherwise stated. Exam Vital Signs (past 8 hours): - 05/06/22 00:58 05/06/22 04:25 05/06/22 08:04 Temperature 98.1 F 99.4 F Pulse Rate 81 105 H 103 H Respiratory Rate 15 18 Blood Pressure 101/52 L 128/71 114/69 Pulse Oximetry 96 92 Oxygen Flow Rate 2 4 Oxygen Delivery Method Nasal Cannula Oxygen Flow Rate 4 Narrative Exam Narrative: GEN: no acute distress, appears comfortable HEENT: moist mucous membranes, PERRL NECK: trachea midline, no JVD CV: regular rate and rhythm, no murmurs PULM: clear bilaterally ABD: soft, nontender, nondistended, no organomegaly EXT: warm and well perfused with no edema NEURO: awake, alert, oriented, no focal deficits Objective Labs Result Diagrams: 05/06/22 08:21 05/06/22 08:21 [facility] Medical History Anxiety COPD (chronic obstructive pulmonary disease) Easy bruisability Eczema Emphysema of lung GERD (gastroesophageal reflux disease) HTN (hypertension) Kidney stones Nasal sinus polyp Panic attacks Sciatica Spinal stenosis Spondylolisthesis Thin skin Surgical History Cataract extraction status, left eye H/O vasectomy Hx of colonoscopy (03/2021) Hx of excision of Zenker's diverticulum (02/12/22) Hx of lithotripsy (01/14/22) Hx of tonsillectomy Social History household members: none Tobacco & Substance Use Smoking Status: Former smoker alcohol intake: current Assessment & Plan Assessment & Plan narrative: # acute respiratory failure postop day 2, not present on admission -cause is most likely postoperative pneumonia or VTE -currently requiring 4 L nasal cannula -chest x-ray, check D-dimer and if likely positive will do CTA chest -check viral PCR panel, COVID negative on admission # concern for acute infection with fever T-max 101.7? F overnight, not present on admission -currently afebrile, WBC 11.5, clinically patient appears well. May be just post op fever of noninfectious cause but will do workup to be sure. -chest x-ray with only emphasematous change, dimer 1198 obtain CTA chest to rule out PE -patient notes dysuria since camacho removed, follow-up urinalysis -blood cultures pending, check sputum if able -start cefepime and vanc for empiric antibiotic coverage narrow based on culture results -check procalcitonin and lactate # postop day 2 for lumbar surgery -management per Orthopedics who is primary # COPD, chronic # anxiety with panic attacks, chronic # hypertension, chronic # GERD, chronic # BPH, chronic Code status is Full code. COVID negative. DVT prophylaxis with SCDs. Proxy is sister Angie. I have reviewed home meds and used all available resources to reconcile the home meds. Thank you for this consult and will follow along with you. Time Spent With Patient Critical Care time: I spent a total of [] minutes of critical care time on this patient's care today; this time is exclusive of procedural time.
[2022-05-06 08:37] LABS: Add Manual Diff / Slide Review NO; Basophils Absolute Auto 100 /uL (0-100); Basophils Percent Auto 0.8 % (0-2); Eosinophils Absolute Auto 100 /uL (0-450); Eosinophils Percent Auto 0.7 % (2-4); Hemoglobin 13.8 g/dL (13.5-17.5); Lymphocytes Absolute Auto 1900 /uL (1100-4500); Lymphocytes Percent Auto 16.2 % (25-40); Mean Corpuscular HGB Conc 33.7 % (30-36); Mean Corpuscular Hemoglobin 31.9 PG (26-34); Mean Corpuscular Volume 94.6 fL (80-100); Monocytes Absolute Auto 1200 /uL (0-900); Monocytes Percent Auto 10.3 % (3-14); Neutrophils Absolute Auto 8300 /uL (1500-7000); Platelet Count 229 X10^3/uL (150-400); Red Blood Cell Count 4.34 X10^6/uL (4.5-5.9); Red Cell Distribution Width 14.5 % (11.6-14.8); White Blood Cell Count 11.5 X10^3/uL (4.5-11.0)
[2022-05-06 08:55] LABS: Alanine Aminotransferase 26 IU/L (<50); Albumin 3.9 g/dL (3.5-5.0); Albumin Globulin Ratio 1.4 (1.0-2.8); Alkaline Phosphatase 85 U/L (38-126); Aspartate Aminotransferase 50 IU/L (17-59); BUN Creatinine Ratio 17.8 (6-22); Bilirubin Total 0.9 mg/dL (0.2-1.3); Blood Urea Nitrogen 21 mg/dL (9-20); Calcium 8.9 mg/dL (8.4-10.2); Carbon Dioxide 30 mmol/L (22-32); Chloride 99 mmol/L (98-107); Estimated Glomerular Filt Rate > 60 mL/min (>60); Globulin 2.7 g/dL (1.7-4.1); Glucose 95 mg/dL (80-110); HEMOLYSIS < 15 (0-50); Potassium 4.1 mmol/L (3.4-5.1); Sodium 138 mmol/L (137-145); Total Protein 6.6 g/dL (6.3-8.2)
[2022-05-06 09:00] LABS: Lactate (Lactic Acid) 0.9 mmol/L (0.7-2.1)
[2022-05-06] MEDS: VANCOMYCIN PER PHARMACY 1 REQUEST MISC (09:00)
[2022-05-06] MEDS: CEFEPIME 2 GM in SODIUM CHLORIDE 0.9% 100 ML IV ×2 (09:00→21:40)
[2022-05-06 09:10] LABS: Procalcitonin 0.45 ng/mL (<0.5)
[2022-05-06 09:28] LABS: D Dimer 1198 ng/ml (<500)
--- NOTE | 2022-05-06 09:54 | PT.IPTN ---
Current Diagnoses Spondylolisthesis, lumbar region (05/04/22) Spinal stenosis, lumbar region with neurogenic claudication (05/04/22) Surgery Performed Operation Date: 05/04/22 07:45 Actual Procedures p L3-4, L4-5 TLIF w. posterior instrumentation-Robot(Not Applicable) - Celsa Church MD Physical Therapy Treatment Note M2 PT-IP Current Condition Start: 05/05/22 09:01 Freq: NEEDED Status: Active Protocol: Document 05/05/22 09:01 [facility] (Rec: 05/05/22 09:18 [facility] [id number]) Physical Therapy Current Condition Current Condition Evaluation Date 05/05/22 Treatment Diagnosis L3-4, L4-5 TLIF Onset Date 05/04/22 M3 PT-IP Subjective Start: 05/05/22 09:01 Freq: NEEDED Status: Active Protocol: Document 05/06/22 09:29 [facility] (Rec: 05/06/22 09:54 LJ [id number]) Subjective Physical Therapy Visit Type Type Treatment Note Visit Start Time 08:52 Visit Stop Time 09:26 Total Visit Minutes 32 Number of QUALITATIVE EXECUTIVE RESEARCHER Visits 1 Therapy Pain Assessment Pain When Pain Assessed At Rest Pain Present Pain Present Pain Reported M4 PT-IP Mobility and Gait Start: 05/05/22 09:01 Freq: NEEDED Status: Active Protocol: Document 05/06/22 09:29 [facility] (Rec: 05/06/22 09:54 LJ [id number]) PT-Transfer Assessment Sit to and From Stand Sit to and from Stand Standby Assistance,Use of Upper Extremities Equipment Transfer Assistive Device Gait Belt,Straight Cane,Front Wheeled Walker Transfers Transfer Destination Chair,Toilet Transfer Technique ambulated Transfer Ability Level of Assist Standby Assistance,Use of Upper Extremities Comments Mobility Comments Pt seated in chair upon entering room. Willing to ambulate in hallway and trial stairs. Pt grimaces upon standing and stairs on ascent. States he feels so weak but not so much pain. He is able to sit<>stand using cane for assistance and stood from couch in room pushing up from bench. Gait Assessment Gait Gait Assistance Required: Standby Assistance Distance (Feet) 400 Assistive Devices Assistive Device Gait Belt,Straight Cane,Front Wheeled Walker Orthotic/Prosthetic Devices or Brace: No Gait Deviations General Gait Pattern Decreased Stride Length, Decreased Feet Clearance Factors Limiting Gait Function Factors Limiting Gait Function Decreased Activity Tolerance, Decreased Strength,Pain Comments Gait Comments Pt able to use FWW in hallway 400' SBA. No LOB. Limited by fatigue and strength. Trialed SPC in room for ~50' however it was awkward and he felt more steady without it. O2 level remained in 90s throughout ambulation. He did not demonstrate any SOB. During treatment he took 2 very short rest breaks once back in the room. Pt requested to use the restroom. He was given the FWW and instructed to pull call light cord when finished. Notified nursing pt was in bathroom upon leaving pts room. Stair Climbing Assessment Evaluation Level of Assist On Stairs Standby Assistance Devices Stair Climbing Assistive Devices Left Railing,Right Railing Technique/Endurance Stair Climbing Direction Ascend and Descend Stair Climbing Technique Step Over Step,Step to Step Number of Steps Climbed 3 Stair Climbing Set # Repetitions (reps) 4 Comments Stair Climbing Comments pt able to go up/down stairs with one rail only to simulate his stairs at home. Required rail assist for ascending due to LE weakness. Easier for him to descend. No difficulty with up or down. M5 PT-IP Objective Assessments Start: 05/05/22 09:01 Freq: NEEDED Status: Active Protocol: Document 05/05/22 09:01 [facility] (Rec: 05/05/22 09:18 [facility] [id number]) Orientation Orientation/Cognition Level of Alertness Alert Language Function Ability No Deficits Noted Safety Awareness Understands Safety Issues Memory Description No Deficits Noted Gross Range of Motion Upper Extremity ROM Assessment Within Functional Limits Lower Extremity ROM Assessment Within Functional Limits Strength Lower Extremity Strength Assessment Within Functional Limits M6 PT-IP Treatment Start: 05/05/22 09:01 Freq: NEEDED Status: Active Protocol: Document 05/06/22 09:29 [facility] (Rec: 05/06/22 09:54 LJ [id number]) Physical Therapy Treatment Education Education Provided Precautions,Weight Bearing Status,Post-Op Packet,Safety M7 PT-IP Assessment and Plan Start: 05/05/22 09:01 Freq: NEEDED Status: Active Protocol: Document 05/06/22 09:29 [facility] (Rec: 05/06/22 09:54 LJ [id number]) PT Summary Assessment and Plan Potential Rehabilitation Potential Excellent Status of Condition at Evaluation Evolving Summary Impairments Pain,ROM,Strength,Balance,Bed Mobility,Transfers,Gait, Activity Tolerance Assessment Summary Pt is very tired and states he feels weak. He demonstrates ability to ambulate and do stairs but reports feeling weak. His living situation is such that he feels able to get around without a SPC in his house. Will work with patient in the afternoon to ascertain if he has improved with gait after being able to rest. Goals Bed Mobility Goal Independent Transfer Goal Independent Gait Goal Independent Gait Distance 200 Other Goals up/down 6 stairs w/1 rail SBA Days to Meet Goals 4 Frequency of Treatment Frequency Of Treatment Twice a Day Treatment Plan Physical Therapy Treatment Plan Bed Mobility Training,Transfer Training,Gait Training, Therapeutic Exercise,Balance Retraining,Post Op Education, Discharge Planning,Hot or Cold Pack,Neuromuscular Re-ed, Manual Therapy Precautions Lumbar Precautions Log Roll,No Twisting,Limit Bending,Lifting Restriction of 10 lbs,Gait Belt above Incisional Area Weight Bearing Status Weight Bearing Status Weight Bear as Tolerated Recommendations To Nursing Amount of Assist Needed Standby Assistance Discharge Recommendations PT Discharge Recommendations Home,Outpatient PT Equipment Needed for Home Before possible shower chair, long Discharge handle shower brush, AD (cane , maybe walker for out of house) Transportation Needs at Discharge Private Vehicle
--- NOTE | 2022-05-06 10:17 | P.PN_ITS ---
Subjective Subjective Date Patient Seen: 05/06/22 Time Patient Seen: 07:40 Interval history: Patient is complaining of moderate to severe low back pain this morning. He notes he felt feverish last night. He did have a temperature of a 101.7?. He is a history of COPD. Overnight, his O2 sats dropped to 71 and the patient was disoriented. He was placed on 4 L of oxygen. He notes he does not use oxygen at home. Exam Vital Signs (past 8 hours): - 05/06/22 04:25 05/06/22 08:04 05/06/22 07:41 Temperature 99.4 F 100.4 F H Pulse Rate 105 H 103 H 114 H Respiratory Rate 18 17 Blood Pressure 128/71 114/69 114/69 Pulse Oximetry 92 93 Oxygen Flow Rate 4 4 Oxygen Delivery Method Nasal Cannula Oxygen Flow Rate 4 Narrative Exam Narrative: 66-year-old male resting comfortably in bed, no acute distress. Dressing is clean, dry, intact. Bilateral lower extremity: Motor functions are grossly intact, sensation is grossly intact to light touch, bilateral calves are soft and nontender to palpation. Objective Labs Result Diagrams: 05/06/22 08:21 05/06/22 08:21 Labs: Laboratory Results - last 24 hr 05/06/22 05/06/22 05/06/22 08:21 08:21 08:21 WBC 11.5 H RBC 4.34 L Hgb 13.8 Hct 41.0 MCV 94.6 MCH 31.9 MCHC 33.7 RDW 14.5 Plt Count 229 Neut % (Auto) 72.0 Lymph % (Auto) 16.2 L [place] % (Auto) 10.3 Eos % (Auto) 0.7 L Baso % (Auto) 0.8 Neut # (Auto) 8300 H Lymph # (Auto) 1900 [place] # (Auto) 1200 H Eos # (Auto) 100 Baso # (Auto) 100 D-Dimer 1198 H Sodium 138 Potassium 4.1 Chloride 99 Carbon Dioxide 30 BUN 21 H Creatinine 1.18 Estimated GFR > 60 BUN/Creatinine Ratio 17.8 Glucose 95 Lactate Calcium 8.9 Total Bilirubin 0.9 AST 50 ALT 26 Alkaline Phosphatase 85 Total Protein 6.6 Albumin 3.9 Globulin 2.7 Albumin/Globulin Ratio 1.4 Procalcitonin 05/06/22 05/06/22 08:21 08:40 WBC RBC Hgb Hct MCV MCH MCHC RDW Plt Count Neut % (Auto) Lymph % (Auto) [place] % (Auto) Eos % (Auto) Baso % (Auto) Neut # (Auto) Lymph # (Auto) [place] # (Auto) Eos # (Auto) Baso # (Auto) D-Dimer Sodium Potassium Chloride Carbon Dioxide BUN Creatinine Estimated GFR BUN/Creatinine Ratio Glucose Lactate 0.9 Calcium Total Bilirubin AST ALT Alkaline Phosphatase Total Protein Albumin Globulin Albumin/Globulin Ratio Procalcitonin 0.45 PFSH Medical History Anxiety COPD (chronic obstructive pulmonary disease) Easy bruisability Eczema Emphysema of lung GERD (gastroesophageal reflux disease) HTN (hypertension) Kidney stones Nasal sinus polyp Panic attacks Sciatica Spinal stenosis Spondylolisthesis Thin skin Surgical History Cataract extraction status, left eye H/O vasectomy Hx of colonoscopy (03/2021) Hx of excision of Zenker's diverticulum (02/12/22) Hx of lithotripsy (01/14/22) Hx of tonsillectomy Social History household members: none Smoking Status: Former smoker alcohol intake: current Assessment & Plan Post-op Postoperative Procedures: Procedures Operation Date: 05/04/22 07:45 Actual Procedure Side Surgeon p L3-4, L4-5 TLIF w. posterior instrumentation-Robot Not Applicable Celsa Church MD Postoperative day: 2 Postoperative status narrative: Status post L3-4, L4-5 TLIF -low-grade fever -hypoxia, currently managed on nasal cannula oxygen. Postoperative plan narrative: -mobilize with PT/OT. Limit bending, lifting, twisting x6 weeks. Weightbearing as tolerated with front wheel walker or cane. -continue multimodal pain management. Discouraged the use of IV pain medications and encouraged the use of p.o. medications. -continue with respiratory therapy -hospitalist consult requested from Dr. Mejia in regards to his fever and hypoxia. A CBC, CMP, UA were ordered. -disposition: Possibly today or tomorrow with home health for physical therapy and occupational therapy, as he lives alone. I will check in with him later today. Quality VTE Deep Vein Thrombosis/Pulmonary Embolism Present on Admission: No
--- NOTE | 2022-05-06 10:30 | OT.IP.TRT ---
Current Diagnoses Spondylolisthesis, lumbar region (05/04/22) Spinal stenosis, lumbar region with neurogenic claudication (05/04/22) Surgery Performed Operation Date: 05/04/22 07:45 Actual Procedures p L3-4, L4-5 TLIF w. posterior instrumentation-Robot(Not Applicable) - Celsa Church MD Occupational Therapy Treatment Note M2 OT-IP Current Condition Start: 05/05/22 13:48 Freq: Status: Active Protocol: Document 05/05/22 11:10 [facility] (Rec: 05/05/22 14:08 [facility] [id number]) Occupational Therapy Current Condition Current Condition Evaluation Date 05/05/22 Treatment Diagnosis S/p L3-4, L4-5 TLIF Diagnosis Onset Date 05/04/22 M3 OT- IP Subjective and Pain Start: 05/05/22 13:48 Freq: Status: Active Protocol: Document 05/06/22 09:17 [facility] (Rec: 05/06/22 12:43 [facility] [id number]) OT- Subjective Occupational Therapy Visit Type Type Treatment Note Visit Start Time 09:17 Visit Stop Time 09:30 Total Visit Minutes 13 Occupational Therapy Visit Comments Patient Comments Pt finishing up using the toilet when OT came in. Patient/Caregiver Goals To go home. OT Pain Assessment Pain When Pain Assessed At Rest Pain Present Pain Present Denied Pain M4 OT- IP ADL's Start: 05/05/22 13:48 Freq: Status: Active Protocol: Document 05/06/22 09:17 [facility] (Rec: 05/06/22 12:43 [facility] [id number]) OT [id number] Comments OT Self-Feeding Comments Not at meal time. OT ADL-Toileting General Evaluation Toileting Ability Independent Comments OT Toileting Comments Pt able to do self toileting needs on his own. OT ADL-Bathing Comments OT Bathing Comments Pt too tired to attempt at this time. M5 OT- IP IADL's Start: 05/05/22 13:48 Freq: Status: Active Protocol: Document 05/05/22 11:10 [facility] (Rec: 05/05/22 14:08 [facility] [id number]) OT-Instrumental Activities of Daily Living Home Safety Awareness Home Safety Comments Pt states has decreased short term memory issues and therefore would be beneficial for someone to help remind his to incorporate his back precautions. As pt is a bit impulsive at times during mobility needs. Also suggested for pt to post signs in his house to help remind him of his precautions. M6 OT- IP Functional Cognition Start: 05/05/22 13:48 Freq: Status: Active Protocol: Document 05/05/22 11:10 [facility] (Rec: 05/05/22 14:08 [facility] [id number]) Cognitive Factors Limiting Selfcare Function Cognitive Ability Level of Alertness Alert Patient Orientation Name,Place,Situation Attention Span Ability Capable of Focused Attention, Capable of Sustained Attention Ability to Follow Commands Able to Follow One Step Commands Memory Description Short Term Impaired Cognitive Comments Cognitive Assessment Comments Pt needing reminders and re- educations for back precautions needs for ADl and mobility needs. In addition vc for log rolling needs. OT- Vision and Hearing OT- Hearing Assessment OT- Hearing Assessment WFL OT- Vision Assessment Visual Acuity WFL M7 OT- IP Mobility and Balance Start: 05/05/22 13:48 Freq: Status: Active Protocol: Document 05/06/22 09:17 [facility] (Rec: 05/06/22 12:43 [facility] [id number]) OT- Bed Mobility Assessment Sit to Supine Sit to Supine Assist Independent OT-Transfer Assessment Sit to and From Stand Sit to and from Stand Independent Transfers Transfer Ability Standby Assistance Technique Transfer Destination Bed,Toilet Transfer Technique Stand Step Pivot Devices Transfer Assistive Devices Gait Belt,Front Wheeled Walker Comments Mobility Comments Pt needing assist to help with O2 tubing management but otherwise able to use the FWW to get from the toilet back to bed on his own . O2 on 4l at 93% and on RA started at 93% and after exertion dropped to 82%, O2 replaced and at 93% and with exertion drops to 86% and after some deep breaths back to 92%. Pt states just feels really tired and that he has not slept well at all. OT- Balance Assessment Sitting Balance and Reactions Static Sitting Balance Ability Normal Dynamic Sitting Balance Ability Good Standing Balance and Reactions Static Standing Balance Ability Good Dynamic Standing Balance Ability Fair M8 OT- IP Objective Assessments Start: 05/05/22 13:48 Freq: Status: Active Protocol: Document 05/05/22 11:10 [facility] (Rec: 05/05/22 14:08 [facility] [id number]) OT-Muscle Tone Assessment Muscle Tone WNL Yes M9 OT- IP Assessment and Plan Start: 05/05/22 13:48 Freq: Status: Active Protocol: Document 05/06/22 09:17 [facility] (Rec: 05/06/22 12:43 [facility] [id number]) OT Summary Assessment and Plan Potential Rehabilitation Potential Good Analytic Complexity at Evaluation Low Summary OT Impairments Pain,Balance,Functional Cognition,Functional Mobility, Dressing,Toileting,Bathing Progress Towards Goals Slow Progress due to Activity Tolerance Assessment Summary Pt now on 4L of O2 and decreased overall activity tolerance. Pt however is moving well and able to do his ADl needs. When medically stable pt hoping to go home. Pt will benefit from home health. Goals Toileting Goal Independent Bathing Goal Independent Shower Transfer Goal Independent Patient/Caregiver Education Goal Demonstrate Post-Op Precautions Days to Meet Goals 5 Frequency of Treatment Frequency Of Treatment Once a Day Treatment Plan OT Treatment Plan ADL Training,Functional Mobility,Patient/Family Education,Discharge Planning Discharge Recommendations OT Discharge Recommendations Home with Assistance,Home Health
--- NOTE | 2022-05-06 11:19 | DI.CT.S_ITS ---
PROCEDURE: CT ANGIO CHEST PE PROTOCOL INDICATIONS: new onset hypoxia, dimer 1198 TECHNIQUE: After the administration of intravenous contrast, 2 mm thick sections acquired from the pulmonary apices to the posterior costophrenic angles. 3-dimensional maximum intensity projection (MIP) coronal and sagittal reformats were then acquired through the thorax. For radiation dose reduction, the following was used: automated exposure control, adjustment of mA and/or kV according to patient size. COMPARISON: None. FINDINGS: Image quality: Excellent. Pulmonary arteries: Pulmonary arteries are normal in size, and demonstrate no intraluminal filling defects to suggest central pulmonary embolism. Lungs and pleura: Severe bullous emphysema present in the lung apices. Bibasilar all basilar platelike atelectasis or scarring.. Mediastinum: Heart size is normal, without pericardial effusion. No mediastinal or hilar adenopathy. Thoracic aorta is normal in caliber and enhancement. Esophagus is normal in caliber, without hiatal hernia. Bones and chest wall: No suspicious bony lesions. Ribs and thoracic spine appear intact throughout. Thyroid gland unremarkable. No axillary or supraclavicular adenopathy. Abdomen: Visualized upper abdominal solid organs appear normal in the early arterial phase of enhancement. IMPRESSION: 1. No evidence of pulmonary embolism, aortic dissection or aneurysm. 2. Severe apical bullous pulmonary emphysema. Approved by: Venkata Hare M.D. on 05/06/2022 at 12:24
[2022-05-06] MEDS: VANCOMYCIN 1,000 MG/200 ML PIGGYBACK 200 MG IV (11:49)
[2022-05-06 14:41] LABS: Adenovirus Not Detected (Not Detect)
[2022-05-06 14:42] LABS: B. parapertussis Not Detected (Not Detecte); Bordetella pertussis Not Detected (Not Detecte); Chlamydophila pneumoniae Not Detected (Not Detect); Coronavirus 229E Not Detected (Not Detect); Coronavirus HKU1 Not Detected (Not Detect); Coronavirus NL 63 Not Detected (Not Detect); Coronavirus OC43 Not Detected (Not Detect); Human Metapneumovirus Not Detected (Not Detect); Human Rhinovirus/Enterovirus Not Detected (Not Detect); Influenza A Not Detected (Not Detect); Influenza B Not Detected (Not Detect); Mycoplasma pneumoniae Not Detected (Not Detect); Parainfluenza Virus 1 Not Detected (Not Detect); Parainfluenza Virus 2 Not Detected (Not Detect); Parainfluenza Virus 3 Not Detected (Not Detect); Parainfluenza Virus 4 Not Detected (Not Detect); Respiratory Syncytial Virus Not Detected (Not Detect); SARS- CoV-2 Not Detected (Not Detecte)
--- NOTE | 2022-05-06 16:28 | PT.IPTN ---
Current Diagnoses Spondylolisthesis, lumbar region (05/04/22) Spinal stenosis, lumbar region with neurogenic claudication (05/04/22) Surgery Performed Operation Date: 05/04/22 07:45 Actual Procedures p L3-4, L4-5 TLIF w. posterior instrumentation-Robot(Not Applicable) - Celsa Church MD Physical Therapy Treatment Note M2 PT-IP Current Condition Start: 05/05/22 09:01 Freq: NEEDED Status: Active Protocol: Document 05/05/22 09:01 [facility] (Rec: 05/05/22 09:18 [facility] [id number]) Physical Therapy Current Condition Current Condition Evaluation Date 05/05/22 Treatment Diagnosis L3-4, L4-5 TLIF Onset Date 05/04/22 M3 PT-IP Subjective Start: 05/05/22 09:01 Freq: NEEDED Status: Active Protocol: Document 05/06/22 16:13 [facility] (Rec: 05/06/22 16:28 LJ [id number]) Subjective Physical Therapy Visit Type Type Treatment Note Visit Start Time 03:31 Visit Stop Time 03:56 Total Visit Minutes 25 Notes intercepted pt walking with nursing in hallway. Number of CARROTER Visits 2 Physical Therapy Visit Comments Patient Comments Willing to continue gait training and therapy with therapist. M4 PT-IP Mobility and Gait Start: 05/05/22 09:01 Freq: NEEDED Status: Active Protocol: Document 05/06/22 16:13 [facility] (Rec: 05/06/22 16:28 LJ [id number]) PT-Bed Mobility Assessment Rolling Type of Rolling Roll to Left Level of Assist Independent Sit to Supine Sit to Supine Independent Scooting Scooting to Edge of Bed Independent Scooting Up and Down in Bed Independent PT-Transfer Assessment Sit to and From Stand Sit to and from Stand Standby Assistance,Use of Upper Extremities Equipment Transfer Assistive Device None Transfers Transfer Destination Bed Transfer Technique ambulated Transfer Ability Level of Assist Standby Assistance,Use of Upper Extremities Comments Mobility Comments Pt walking in hallway with nursing using FWW. Still using O2. CARROTER took over assisting pt to continue gait training. Pt ambulated to room where the FWW was switched out for a SPC. Continued ambulating in [place] another 200' with cane and O2 SBA. He switched hands with the cane trying to figure out which was most comfortable. Minimal use of cane. He returned to the room and continued to ambulate in room another 40' without cane but his left leg buckled somewhat but he caught himself . He decided he would use the cane for that reason. He reports having ordered one for use at home. He returned to bed independently and was left with the call light within reach. Gait Assessment Gait Gait Assistance Required: Standby Assistance Distance (Feet) 300 Assistive Devices Assistive Device Gait Belt,Straight Cane,Front Wheeled Walker Orthotic/Prosthetic Devices or Brace: No Gait Deviations General Gait Pattern Decreased Stride Length, Decreased Feet Clearance Factors Limiting Gait Function Factors Limiting Gait Function Decreased Activity Tolerance, Decreased Strength,Pain Comments Gait Comments see mobility M5 PT-IP Objective Assessments Start: 05/05/22 09:01 Freq: NEEDED Status: Active Protocol: Document 05/05/22 09:01 [facility] (Rec: 05/05/22 09:18 [facility] [id number]) Orientation Orientation/Cognition Level of Alertness Alert Language Function Ability No Deficits Noted Safety Awareness Understands Safety Issues Memory Description No Deficits Noted Gross Range of Motion Upper Extremity ROM Assessment Within Functional Limits Lower Extremity ROM Assessment Within Functional Limits Strength Lower Extremity Strength Assessment Within Functional Limits M6 PT-IP Treatment Start: 05/05/22 09:01 Freq: NEEDED Status: Active Protocol: Document 05/06/22 16:13 [facility] (Rec: 05/06/22 16:28 [id number]) Physical Therapy Treatment Education Education Provided Precautions,Weight Bearing Status,Post-Op Packet,Safety M7 PT-IP Assessment and Plan Start: 05/05/22 09:01 Freq: NEEDED Status: Active Protocol: Document 05/06/22 16:13 [facility] (Rec: 05/06/22 16:28 [id number]) PT Summary Assessment and Plan Potential Rehabilitation Potential Excellent Status of Condition at Evaluation Evolving Summary Impairments Pain,ROM,Strength,Balance,Gait ,Activity Tolerance Assessment Summary Pt had more enegy this afternoon. With nursing he did the stairs again without any difficulty or safety concerns. He is doing well with mobility and progressing with gait. He will most likely continue to improve as tolerance for activity increases and strength returns . Goals Bed Mobility Goal Independent Transfer Goal Independent Gait Goal Independent Gait Distance 200 Other Goals up/down 6 stairs w/1 rail SBA Days to Meet Goals 4 Frequency of Treatment Frequency Of Treatment Twice a Day Treatment Plan Physical Therapy Treatment Plan Bed Mobility Training,Transfer Training,Gait Training, Therapeutic Exercise,Balance Retraining,Post Op Education, Discharge Planning,Hot or Cold Pack,Neuromuscular Re-ed, Manual Therapy Precautions Lumbar Precautions Log Roll,No Twisting,Limit Bending,Lifting Restriction of 10 lbs,Gait Belt above Incisional Area Weight Bearing Status Weight Bearing Status Weight Bear as Tolerated Recommendations To Nursing Amount of Assist Needed Standby Assistance Discharge Recommendations PT Discharge Recommendations Home,Outpatient PT Equipment Needed for Home Before possible shower chair, long Discharge handle shower brush, AD (cane , maybe walker for out of house) Transportation Needs at Discharge Private Vehicle
[2022-05-06] MEDS: ACETAMINOPHEN 325 MG TABLET 650 MG PO (19:11)
[2022-05-06] MEDS: SENNOSIDES 8.6 MG TABLET 17.2 MG PO (21:41)
[2022-05-06] MEDS: LORazepam 0.5 MG TABLET 0.25 MG PO (21:41)
[2022-05-06] MEDS: MELATONIN 3 MG TABLET 6 MG PO (21:42)
[2022-05-07] VITALS: PULSE 78; RESP 16; O2SAT 95
[2022-05-07] MEDS: VANCOMYCIN 1,000 MG/200 ML PIGGYBACK 200 MG IV (01:31)
[2022-05-07] MEDS: OXYCODONE IR 5 MG TABLET 10 MG PO ×2 (03:44→09:21)
[2022-05-07 04:00] VITALS: BP 140/75; PULSE 107; RESP 17; TEMP 36.2; O2SAT 93
[2022-05-07 07:58] VITALS: BP 129/75; PULSE 94; RESP 16; TEMP 36.8; O2SAT 95
[2022-05-07 08:01] LABS: Add Manual Diff / Slide Review NO; Basophils Absolute Auto 0 /uL (0-100); Basophils Percent Auto 0.5 % (0-2); Eosinophils Absolute Auto 300 /uL (0-450); Eosinophils Percent Auto 3.3 % (2-4); Hematocrit 36.5 % (41-53); Hemoglobin 12.5 g/dL (13.5-17.5); Lymphocytes Absolute Auto 1200 /uL (1100-4500); Lymphocytes Percent Auto 15.2 % (25-40); Mean Corpuscular HGB Conc 34.3 % (30-36); Mean Corpuscular Hemoglobin 31.9 PG (26-34); Mean Corpuscular Volume 93.2 fL (80-100); Monocytes Absolute Auto 800 /uL (0-900); Monocytes Percent Auto 10.1 % (3-14); Neutrophils Absolute Auto 5400 /uL (1500-7000); Neutrophils Percent Auto 70.9 % (50-75); Platelet Count 198 X10^3/uL (150-400); Red Blood Cell Count 3.91 X10^6/uL (4.5-5.9); White Blood Cell Count 7.6 X10^3/uL (4.5-11.0)
--- NOTE | 2022-05-07 08:12 | PM.PN.1 ---
Subjective Subjective Date Patient Seen: 05/07/22 Time Patient Seen: 09:15 Interval history: Patient feeling well this morning and walking around with a walker. Says he has a home oxygen generator to use when he gets home. Exam Vital Signs (past 8 hours): - 05/07/22 04:00 05/07/22 07:58 Temperature 97.1 F L 98.3 F Pulse Rate 107 H 94 H Respiratory Rate 17 16 Blood Pressure 140/75 129/75 Pulse Oximetry 93 95 Oxygen Flow Rate 4 Oxygen Delivery Method Nasal Cannula Oxygen Flow Rate 4 Narrative Exam Narrative: GEN: no acute distress, appears comfortable HEENT: moist mucous membranes, PERRL NECK: trachea midline, no JVD CV: regular rate and rhythm, no murmurs PULM: clear bilaterally ABD: soft, nontender, nondistended, no organomegaly EXT: warm and well perfused with no edema NEURO: awake, alert, oriented, no focal deficits Objective Labs Result Diagrams: 05/07/22 07:45 05/07/22 07:45 Labs: Laboratory Results - last 24 hr 05/06/22 05/06/22 05/06/22 08:21 08:21 08:21 WBC 11.5 H RBC 4.34 L Hgb 13.8 Hct 41.0 MCV 94.6 MCH 31.9 MCHC 33.7 RDW 14.5 Plt Count 229 Neut % (Auto) 72.0 Lymph % (Auto) 16.2 L [place] % (Auto) 10.3 Eos % (Auto) 0.7 L Baso % (Auto) 0.8 Neut # (Auto) 8300 H Lymph # (Auto) 1900 [place] # (Auto) 1200 H Eos # (Auto) 100 Baso # (Auto) 100 D-Dimer 1198 H Sodium 138 Potassium 4.1 Chloride 99 Carbon Dioxide 30 BUN 21 H Creatinine 1.18 Estimated GFR > 60 BUN/Creatinine Ratio 17.8 Glucose 95 Lactate Calcium 8.9 Total Bilirubin 0.9 AST 50 ALT 26 Alkaline Phosphatase 85 Total Protein 6.6 Albumin 3.9 Globulin 2.7 Albumin/Globulin Ratio 1.4 Procalcitonin Chlamy pneumoniae PCR Adenovirus (PCR) B. pertussis DNA (PCR) B.parapertussis DNA PCR Coronavirus OC43 (PCR) Coronavirus HKU1 (PCR) Coronavirus 229E (PCR) SARS-CoV-2 (PCR) Coronavirus NL63 (PCR) Human Metapneumovir PCR Influenza Type A (PCR) Influenza Type B (PCR) M. pneumoniae (PCR) Parainfluenza 1 (PCR) Parainfluenza 2 (PCR) Parainfluenza 3 (PCR) Parainfluenza 4 (PCR) RSV (PCR) Entero/Rhino (PCR) 05/06/22 05/06/22 05/06/22 08:21 08:40 10:30 WBC RBC Hgb Hct MCV MCH MCHC RDW Plt Count Neut % (Auto) Lymph % (Auto) [place] % (Auto) Eos % (Auto) Baso % (Auto) Neut # (Auto) Lymph # (Auto) [place] # (Auto) Eos # (Auto) Baso # (Auto) D-Dimer Sodium Potassium Chloride Carbon Dioxide BUN Creatinine Estimated GFR BUN/Creatinine Ratio Glucose Lactate 0.9 Calcium Total Bilirubin AST ALT Alkaline Phosphatase Total Protein Albumin Globulin Albumin/Globulin Ratio Procalcitonin 0.45 Chlamy pneumoniae PCR Not detected Adenovirus (PCR) Not detected B. pertussis DNA (PCR) Not detected B.parapertussis DNA PCR Not detected Coronavirus OC43 (PCR) Not detected Coronavirus HKU1 (PCR) Not detected Coronavirus 229E (PCR) Not detected SARS-CoV-2 (PCR) Not detected Coronavirus NL63 (PCR) Not detected Human Metapneumovir PCR Not detected Influenza Type A (PCR) Not detected Influenza Type B (PCR) Not detected M. pneumoniae (PCR) Not detected Parainfluenza 1 (PCR) Not detected Parainfluenza 2 (PCR) Not detected Parainfluenza 3 (PCR) Not detected Parainfluenza 4 (PCR) Not detected RSV (PCR) Not detected Entero/Rhino (PCR) Not detected PFSH Medical History Anxiety COPD (chronic obstructive pulmonary disease) Easy bruisability Eczema Emphysema of lung GERD (gastroesophageal reflux disease) HTN (hypertension) Kidney stones Nasal sinus polyp Panic attacks Sciatica Spinal stenosis Spondylolisthesis Thin skin Surgical History Cataract extraction status, left eye H/O vasectomy Hx of colonoscopy (03/2021) Hx of excision of Zenker's diverticulum (02/12/22) Hx of lithotripsy (01/14/22) Hx of tonsillectomy Social History household members: none Smoking Status: Former smoker alcohol intake: current Assessment & Plan Assessment & Plan narrative: # acute respiratory failure secondary to underlying COPD, not present on admission -CTA chest with severe bullous emphysema, which was likely exacerbated by surgery. Patient reports 30+ pack year smoker. -currently requiring 4 L nasal cannula, patient has home O2 and will continue this at home -no findings of PNA or PE, resp PCR negative -recommend continuing home O2 to keep sats >88% # concern for acute infection with fever T-max 101.7? F overnight, not present on admission -no fevers, WBC normalized -CXR normal, CTPA without PE or PNA -blood cultures no growth -procal and lactate normal -do not suspect infectious etiology at this time, safe to discharge home # postop day 2 for lumbar surgery -management per Orthopedics who is primary # COPD, chronic # anxiety with panic attacks, chronic # hypertension, chronic # GERD, chronic # BPH, chronic Code status is Full code. COVID negative. DVT prophylaxis with SCDs. Proxy is sister Angie. I have reviewed home meds and used all available resources to reconcile the home meds. Medicine will sign off today. Thank you for allowing us to participate in the care of this patient. Should you have any further questions, do not hesitate to speak with us directly or call us. Time Spent With Patient Critical Care time: I spent a total of [] minutes of critical care time on this patient's care today; this time is exclusive of procedural time. Quality VTE Deep Vein Thrombosis/Pulmonary Embolism Present on Admission: No
[2022-05-07 08:14] LABS: BUN Creatinine Ratio 25.3 (6-22); Blood Urea Nitrogen 19 mg/dL (9-20); Calcium 8.5 mg/dL (8.4-10.2); Carbon Dioxide 28 mmol/L (22-32); Chloride 103 mmol/L (98-107); Estimated Glomerular Filt Rate > 60 mL/min (>60); Glucose 91 mg/dL (80-110); HEMOLYSIS < 15 (0-50); Magnesium 2.2 mg/dL (1.6-2.3); Potassium 3.9 mmol/L (3.4-5.1); Sodium 139 mmol/L (137-145)
[2022-05-07] MEDS: TRELEGY ELLIPTA 1 EACH INH (09:11)
[2022-05-07 09:14] VITALS: BP 129/75; PULSE 94
[2022-05-07] MEDS: TAMSULOSIN 0.4 MG CAPSULE PO (09:14)
[2022-05-07] MEDS: PANTOPRAZOLE DR 20 MG TABLET PO (09:14)
[2022-05-07] MEDS: lisinopriL 5 MG TABLET 2.5 MG PO (09:14)
[2022-05-07] MEDS: DOCUSATE 100 MG CAPSULE PO (09:14)
--- NOTE | 2022-05-07 09:18 | P.DS_ITS ---
History of Present Illness History of Present Illness Date Patient Seen: 05/07/22 Time Patient Seen: 09:19 Chief complaint: TLIF Narrative: 66-year-old male status post L3-L4 L4-L5 TLIFt. Admitted to inpatient unit post surgery. Patient has been having chronic back pain and worsening lumbar radiculopathy. Patient failed multiple conservative management with worsening pain weakness and numbness in his lower extremity.? Patient has been having difficulty performing activity of daily living.? After discussing risks benefits of treatment options, patient elected proceed with surgery. Discharge Providers Provider Date of admission: 05/04/22 06:19 Discharge Date: 05/07/22 Primary care physician: Diana Vidales MD Consults: 05/04/22 13:26 Consult to Occupational Therapy Evaluate & Treat Comment: Physician Instructions: Evaluate and treat Consult to Physical Therapy Evaluate & Treat Comment: Physician Instructions: Evaluate and Treat 05/05/22 12:46 Consult to Home Health Routine Comment: DX: TLIF Reason For Exam: Home health for PT/OT 05/06/22 07:45 Consult to Hospitalist Service Routine Comment: Consulting Provider: Tariq Jhaveri Reason for consultation: fever, hypoxemia Discharge provider: Beti Casas MD Summary Hospital Course Discharge Diagnosis: 1. L3-4, L4-5 spinal stenosis 2. Lumbar scoliosis 3. Lumbar spondylosis with radiculopathy Hospital Course: Patient was admitted to the floor post surgery for L3-L4 and L4-L5 TLIF. He was controlled with p.o. and IV pain medication. On postoperative day 2 he had a desaturation overnight and hospitalist Medicine was consulted. Had a workup including a CT scan that just demonstrated emphysema. He was briefly placed on IV antibiotics and steroids. There was no other evidence of infection and antibiotics were discontinued. Findings were consistent with emphysema. Patient has baseline at home intermittent oxygen use. On postoperative day 2 he was ambulating independently on the floor. His pain was controlled. Vital signs were stable. He was evaluated for home O2 use and optimized for medical discharge home with home health. Status at Discharge Cognitive/behavioral status at discharge: oriented Functional status at discharge: independent ambulation (Some walker use) Overall status at discharge: patient is progressing back to baseline Time Spent with Patient Time spent: Less than 30 minutes Exam Vital Signs (past 8 hours): - 05/07/22 04:00 05/07/22 07:58 Temperature 97.1 F L 98.3 F Pulse Rate 107 H 94 H Respiratory Rate 17 16 Blood Pressure 140/75 129/75 Pulse Oximetry 93 95 Oxygen Flow Rate 4 Oxygen Delivery Method Nasal Cannula Oxygen Flow Rate 4 Narrative Exam Narrative: Alert oriented male in no acute distress HEENT exam normocephalic atraumatic Respiratory exam is unlabored. Does have nasal cannula oxygen this morning, sats in the 90s. No accessory muscle use Heart regular rate and rhythm Low back exam demonstrates dressing clean dry and intact. No drainage. No erythema Patient demonstrates movement of his bilateral upper and lower extremities. Good dorsiflexion plantar flexion knee flexion extension bilaterally. Calves are soft. SCDs in place Patient demonstrates independent in ambulation and also demonstrates good technique turning in the bed. Objective Labs Result Diagrams: 05/07/22 07:45 05/07/22 07:45 Labs: Laboratory Results - last 24 hr 05/06/22 05/06/22 05/07/22 08:21 10:30 07:45 WBC 7.6 RBC 3.91 L Hgb 12.5 L Hct 36.5 L MCV 93.2 MCH 31.9 MCHC 34.3 RDW 14.0 Plt Count 198 Neut % (Auto) 70.9 Lymph % (Auto) 15.2 L [place] % (Auto) 10.1 Eos % (Auto) 3.3 Baso % (Auto) 0.5 Neut # (Auto) 5400 Lymph # (Auto) 1200 [place] # (Auto) 800 Eos # (Auto) 300 Baso # (Auto) 0 D-Dimer 1198 H Sodium Potassium Chloride Carbon Dioxide BUN Creatinine Estimated GFR BUN/Creatinine Ratio Glucose Calcium Magnesium Chlamy pneumoniae PCR Not detected Adenovirus (PCR) Not detected B. pertussis DNA (PCR) Not detected B.parapertussis DNA PCR Not detected Coronavirus OC43 (PCR) Not detected Coronavirus HKU1 (PCR) Not detected Coronavirus 229E (PCR) Not detected SARS-CoV-2 (PCR) Not detected Coronavirus NL63 (PCR) Not detected Human Metapneumovir PCR Not detected Influenza Type A (PCR) Not detected Influenza Type B (PCR) Not detected M. pneumoniae (PCR) Not detected Parainfluenza 1 (PCR) Not detected Parainfluenza 2 (PCR) Not detected Parainfluenza 3 (PCR) Not detected Parainfluenza 4 (PCR) Not detected RSV (PCR) Not detected Entero/Rhino (PCR) Not detected 05/07/22 07:45 WBC RBC Hgb Hct MCV MCH MCHC RDW Plt Count Neut % (Auto) Lymph % (Auto) [place] % (Auto) Eos % (Auto) Baso % (Auto) Neut # (Auto) Lymph # (Auto) [place] # (Auto) Eos # (Auto) Baso # (Auto) D-Dimer Sodium 139 Potassium 3.9 Chloride 103 Carbon Dioxide 28 BUN 19 Creatinine 0.75 Estimated GFR > 60 BUN/Creatinine Ratio 25.3 H Glucose 91 Calcium 8.5 Magnesium 2.2 Chlamy pneumoniae PCR Adenovirus (PCR) B. pertussis DNA (PCR) B.parapertussis DNA PCR Coronavirus OC43 (PCR) Coronavirus HKU1 (PCR) Coronavirus 229E (PCR) SARS-CoV-2 (PCR) Coronavirus NL63 (PCR) Human Metapneumovir PCR Influenza Type A (PCR) Influenza Type B (PCR) M. pneumoniae (PCR) Parainfluenza 1 (PCR) Parainfluenza 2 (PCR) Parainfluenza 3 (PCR) Parainfluenza 4 (PCR) RSV (PCR) Entero/Rhino (PCR) [facility] Medical History Anxiety COPD (chronic obstructive pulmonary disease) Easy bruisability Eczema Emphysema of lung GERD (gastroesophageal reflux disease) HTN (hypertension) Kidney stones Nasal sinus polyp Panic attacks Sciatica Spinal stenosis Spondylolisthesis Thin skin Surgical History Cataract extraction status, left eye H/O vasectomy Hx of colonoscopy (03/2021) Hx of excision of Zenker's diverticulum (02/12/22) Hx of lithotripsy (01/14/22) Hx of tonsillectomy Social History household members: none Smoking Status: Former smoker alcohol intake: current Discharge Assessment & Plan Assessment and Plan Assessment: Postoperative day: 3 Postoperative status narrative: Status post L3-4, L4-5 TLIF Doing better today. Ambulating independently. Pain controlled. Approved for home discharge with home health. had-CT yesterday, demonstrated emphysema. No evidence for continued IV antibiotics. Optimized for discharge by inpatient hospitalist Medicine team, involvement appreciated. Plan of Treatment: ? Limit bending, lifting, twisting x6 weeks.? Weightbearing as tolerated with front wheel walker or cane. ? -continue multimodal pain management, pain controlled on oral medications tolerating p.o. diet when for discharge home today with home health -follow-up in 2 weeks with [facility] Discharge Plan Discharge Plan Patient Disposition: Home Provider Discharge Comment: Home with home health Discharge orders & Medications Prescriptions: New docusate sodium 100 mg Capsule 100 mg PO BID Qty: 30 0RF oxycodone 5 mg Tablet 5 mg PO Q4HR PRN (Reason: pain) Qty: 42 0RF hydroxyzine pamoate 25 mg Capsule 25 mg PO Q4HR PRN (Reason: Nausea And Vomiting) Qty: 30 0RF Continued tramadol 50 mg Tablet 50 mg PO BID PRN (Reason: Pain) lorazepam 0.5 mg Tablet 0.25 mg PO BEDTIME tamsulosin 0.4 mg Capsule 0.4 mg PO DAILY ibuprofen 600 mg Tablet 600 mg PO BID PRN (Reason: Pain) albuterol sulfate 90 mcg/actuation Hfa Aerosol Inhaler 2 puff INHALATION DAILY PRN (Reason: Shortness Of Breath) lisinopril 2.5 mg Tablet 2.5 mg PO DAILY omeprazole 20 mg Tablet,Delayed Release (Dr/Ec) 20 mg PO BID Trelegy Ellipta 100-62.5-25 mcg Blister With Device 1 inh INHALATION DAILY Follow up/Referrals: Diana Vidales MD [Primary Care Provider] - Diet/Activity/Treatments Diet: Diet as Tolerated Activity: limit bending, lifting, twisting x6 weeks. Weightbearing as tolerated with front wheel walker or cane. Other treatments: Activity No heavy lifting greater than 10 [address] while on narcotic pain medication. Do not get your dressing/cast/splint wet! Limit lifting bending and twisting for 6 weeks. Weightbear as tolerated --walker or cane No driving until you are otherwise instructed by your physician. This will be addressed at your first follow-up appointment. Discharge Pain Medications You will be given a prescription for pain medication. You should start taking this the same day after your surgery. Wean off as tolerated. Do not wait to take the pain medication until the pain is severe, as it will be difficult to catch up once this occurs. The pain medication usually reaches its full effect ~1 hour after ingesting. If you have been sent home on Colace, this medication should be taken until you are off all narcotic (i.e. Vicodin, Percocet, Oxycodone, etc) pain medications, to prevent constipation. You may also obtain this or another stool softener over the counter to prevent or alleviate constipation. Percocet or Vicodin have Tylenol in their ingredient lists. You must be careful not to exceed 3,000mg (3 grams) of Tylenol, from all sources, within a single 24-hr period. This means that you may not take more than 10 pills within a 24- hr period. Do NOT take Regular or Extra Strength Tylenol when taking your Percocet or Vicodin medications. -Some common side effects of the narcotic pain medications (Percocet, Oxycodone, Vicodin, etc.) include nausea and itching. Benadryl is a great over the counter medication that helps calm your stomach, decreases your anxiety levels, and minimizes the itching. You can easily purchase this at your local pharmacy as an [id number] medication. Please abide by the instructions as printed on the bottle. If your nausea persists, make sure to take small amounts of crackers or other police liaison officer foods. -If have been given oxycodone 5 mg tablets, try to take the smallest dose needed to control your pain. Generally start with 5 mg every 4 hours as needed for pain. However you can increase this if you are having significant pain. The maximum dosage for oxycodone would be 15 mg or three (5 mg) tablets p.o. every 3 hours as needed for pain. As soon as pain is better controlled you should decrease the amount of medication your taking and increase the interval between doses. If you are given Percocet or Vicodin or [place] these are medications with the narcotic and Tylenol in them and they were dosing will need to keep in mind the maximum daily dosages for Tylenol/acetaminophen. Follow-Up/Emergency Contacts Please call for an appointment in either [place] or [place], if one has not been scheduled. Follow up 2 weeks after surgery. [phone] Contact the office if you have any of the following: ? Painful swelling or numbness ? Unrelenting pain ? Fever (over 101?- it is normal to have a low grade fever for the first day or two following surgery) or chills ? Redness around the incisions ? Color changes ? Continuous bleeding or drainage from the incision (a small amount is expected) ? Excessive nausea or vomiting ? Difficulty breathing If you have an emergency that requires immediate attention such as shortness of breath or chest pain, call 911 or proceed to the nearest emergency room. Blood Clot Prophylaxis Mobilized, walk around to prevent blood clots. Commence foot and ankle/knee pumps and movement with the legs to keep your blood moving and help prevent clots. Adjust your position or get up onto your walker every hour or so just to move around. Pain Medications: It is the policy of [facility] that narcotic medications will only be refilled during office hours. Additionally, due to the alarming rate of narcotic pain medication abuse/dependence, it has become necessary for physician practices to closely manage patient use of prescription narcotic pain relievers, such as Vicodin ([place]kov), Percocet, and Oxycodone products. Narcotic pain management in the postoperative period may not exceed 6 weeks. If narcotic pain management is required beyond 90 days, then a referral to a Chronic Pain Specialist will be made. If a request for a medication prescription has been made, the physician must review your chart prior to authorizing the request. Please be patient with office staff. If you call during patient hours, your call may not be returned until the end of the day. [facility] [address] [email or web address] Note Skin/Wound/Dressing Care Report to your healthcare provider any signs of infection, such as:: chills, fever, night sweats, increased pain, unusual drainage and unusual redness Visit Report/Discharge Packet Instructions: DI for Prescription Opioid Use, DI for Transforaminal Lumbar Int erbody Fusion Stand Alone Forms: Surgery Discharge Discharge Data Primary Care Provider: Diana Vidales VTE Deep Vein Thrombosis/Pulmonary Embolism Present on Admission: No
[2022-05-07 10:05] VITALS: O2SAT 96
--- NOTE | 2022-05-07 10:05 | PT.IPTN ---
Current Diagnoses Spondylolisthesis, lumbar region (05/04/22) Spinal stenosis, lumbar region with neurogenic claudication (05/04/22) Surgery Performed Operation Date: 05/04/22 07:45 Actual Procedures p L3-4, L4-5 TLIF w. posterior instrumentation-Robot(Not Applicable) - Celsa Church MD Physical Therapy Treatment Note M2 PT-IP Current Condition Start: 05/05/22 09:01 Freq: NEEDED Status: Discharge Protocol: Document 05/07/22 09:27 SP (Rec: 05/07/22 19:34 SP [id number]) Physical Therapy Current Condition Current Condition Evaluation Date 05/05/22 Treatment Diagnosis L3-4, L4-5 TLIF Onset Date 05/04/22 M3 PT-IP Subjective Start: 05/05/22 09:01 Freq: NEEDED Status: Discharge Protocol: Document 05/07/22 09:27 SP (Rec: 05/07/22 19:34 SP [id number]) Subjective Physical Therapy Visit Type Type Treatment Note Visit Start Time 09:27 Visit Stop Time 10:05 Total Visit Minutes 38 Notes Vitals taken during tx: intercepted walking around in room with O2 donned: 110/63 HR 84 SaO2 94% on 4L Pt maintained high 97-99% decreasing during mobility down to 1 L, 89% on RA. Number of [employer] MANAG[employer] SPECIALIST Visits 3 Physical Therapy Visit Comments Patient Comments Pt willing to work with therapy, including gait hallway and stair mgt. Patient Goals return home with friend to assist as needed. Therapy Pain Assessment Pain When Pain Assessed During Mobility Pain Present Pain Present Pain Reported Location lower back Scale Used no scale rating reported Description With Movement Pain Behaviors Facial Grimacing Pain Management Techniques Distraction,Re-positioning, Timing of Activity with Medications M4 PT-IP Mobility and Gait Start: 05/05/22 09:01 Freq: NEEDED Status: Discharge Protocol: Document 05/07/22 09:27 SP (Rec: 05/07/22 19:34 SP [id number]) PT-Bed Mobility Assessment Rolling Type of Rolling Bilateral Level of Assist Independent Supine to Sit Supine to Sit Independent Sit to Supine Sit to Supine Independent Scooting Scooting to Edge of Bed Independent Scooting Up and Down in Bed Independent PT-Transfer Assessment Sit to and From Stand Sit to and from Stand Independent,Use of Upper Extremities Equipment Transfer Assistive Device Gait Belt,Straight Cane,Front Wheeled Walker Orthotic/Prosthetic Devices or Brace: No Transfers Transfer Destination Chair,Toilet,Wheelchair Transfer Technique pt ambulated using SPC, FWW Transfer Ability Level of Assist Standby Assistance,Contact Guard Assistance,Use of Upper Extremities Comments Mobility Comments Pt was walking around in room when arrived, using FWW, good demonstration O2 line mgt, deep squat contact bench/ FWW to pick pulling machine tender something off floor , stable good recall and maintain spinal precautions. Stable vitals when assessed. Small distance gait across room w/ SPC CGA noted little trunk sway but no LOB to w/c in hallway. Recommended use of FWW for safety and agreed to a dispensed FWW from hospital pre DC. RANG[employer] MANAGEMENT SPECIALIST pushed pt down to stairs, pt completed 3 step L HR then 3 step R HR needs to complete at home in to trailer CGA step over step patterning , stable, He was able to progress gait back to room approx 270 ft total w/ FWW sBA/I following with portable O2 tank on w/c, Periodic stop stand to assess O2 with improvement high 90s reducing 4>1 L during gait hallway, with no breath stress. Pt returned to room chair. Respiratory therapist entered room, provided feedback 89% on RA during 3 reps STS so left on 1L O2 and stated for RT to give nursing feedback. [employer] MANAG[employer] SPECIALIST recommending HHPT for progression LRAD/ no AD as PLOF, pt in agreement. Pt states family/friends can assist him if needed. Doesn't plan to leave trailer, cooks food in microwave. Gait Assessment Gait Gait Assistance Required: Standby Assistance Distance (Feet) 270 Assistive Devices Assistive Device Gait Belt,Straight Cane,Front Wheeled Walker Orthotic/Prosthetic Devices or Brace: No Gait Deviations General Gait Pattern Antalgic,Decreased Stride Length,Decreased Feet Clearance,Lateral Trunk Lean Factors Limiting Gait Function Factors Limiting Gait Function Decreased Activity Tolerance, Decreased Strength,Pain,Poor Balance Comments Gait Comments trunk sways gait w/ SPC no LOB CGA, good stability w/ FWW, DIspensed FWW for home use. Stair Climbing Assessment Evaluation Level of Assist On Stairs Standby Assistance Devices Stair Climbing Assistive Devices Left Railing Technique/Endurance Stair Climbing Direction Ascend and Descend Stair Climbing Technique Step Over Step Number of Steps Climbed 3 Stair Climbing Set # Repetitions (reps) 3 Comments Stair Climbing Comments SBA receiprocal stepping L HR 1st set 3 step, R HR 2nd set as in trailer, stable. PT-Balance Assessment Sitting Balance and Reactions Static Sitting Balance Ability Normal Dynamic Sitting Balance Ability Normal Standing Balance and Reactions Static Standing Balance Ability Normal Dynamic Standing Balance Ability Good Device Used FWW, fair w/ SPC M5 PT-IP Objective Assessments Start: 05/05/22 09:01 Freq: NEEDED Status: Discharge Protocol: Document 05/05/22 09:01 [facility] (Rec: 05/05/22 09:18 [facility] [id number]) Orientation Orientation/Cognition Level of Alertness Alert Language Function Ability No Deficits Noted Safety Awareness Understands Safety Issues Memory Description No Deficits Noted Gross Range of Motion Upper Extremity ROM Assessment Within Functional Limits Lower Extremity ROM Assessment Within Functional Limits Strength Lower Extremity Strength Assessment Within Functional Limits M6 PT-IP Treatment Start: 05/05/22 09:01 Freq: NEEDED Status: Discharge Protocol: Document 05/07/22 09:27 SP (Rec: 05/07/22 19:34 SP [id number]) Physical Therapy Treatment Education Education Provided Precautions,Weight Bearing Status,Post-Op Packet,Safety M7 PT-IP Assessment and Plan Start: 05/05/22 09:01 Freq: NEEDED Status: Discharge Protocol: Document 05/07/22 09:27 SP (Rec: 05/07/22 19:34 SP [id number]) PT Summary Assessment and Plan Potential Rehabilitation Potential Excellent Status of Condition at Evaluation Evolving Summary Impairments Pain,ROM,Strength,Balance,Gait ,Activity Tolerance Progress Towards Goals Progressing Toward Goals,Slow Progress due to Pain,Slow Progress due to Activity Tolerance Assessment Summary CGA trunk sways w/SPC, dispensed FWW I in room, improved SaO2 1L 90, 89% on RA during mobility. Pt is ok return home with friends to assist him as needed, recommending HHPT to progress balance back to PLOF no AD. Goals Bed Mobility Goal Independent Transfer Goal Independent Gait Goal Independent Gait Distance 200 Other Goals up/down 6 stairs w/1 rail SBA Days to Meet Goals 4 Frequency of Treatment Frequency Of Treatment Twice a Day Treatment Plan Physical Therapy Treatment Plan Bed Mobility Training,Transfer Training,Gait Training, Therapeutic Exercise,Balance Retraining,Post Op Education, Discharge Planning,Hot or Cold Pack,Neuromuscular Re-ed, Manual Therapy Other Recommendations and Next Treatment dynamic balance activities, Focus gait LRAD/ no AD. Precautions Lumbar Precautions Log Roll,No Twisting,Limit Bending,Lifting Restriction of 10 lbs,Gait Belt above Incisional Area Weight Bearing Status Weight Bearing Status Weight Bear as Tolerated Recommendations To Nursing Amount of Assist Needed Independent,Standby Assistance Discharge Recommendations PT Discharge Recommendations Home,Home Health,Outpatient PT Equipment Needed for Home Before possible shower chair, long Discharge handle shower brush, dispensed FWW Transportation Needs at Discharge Private Vehicle
[2022-05-07 11:26] VITALS: BP 116/59; PULSE 106; RESP 16; TEMP 36.7; O2SAT 91
--- NOTE | 2022-05-07 11:29 | OT.IP.TRT ---
Current Diagnoses Spondylolisthesis, lumbar region (05/04/22) Spinal stenosis, lumbar region with neurogenic claudication (05/04/22) Surgery Performed Operation Date: 05/04/22 07:45 Actual Procedures p L3-4, L4-5 TLIF w. posterior instrumentation-Robot(Not Applicable) - Celsa Church MD Occupational Therapy Treatment Note M2 OT-IP Current Condition Start: 05/05/22 13:48 Freq: Status: Active Protocol: Document 05/05/22 11:10 [facility] (Rec: 05/05/22 14:08 [facility] [id number]) Occupational Therapy Current Condition Current Condition Evaluation Date 05/05/22 Treatment Diagnosis S/p L3-4, L4-5 TLIF Diagnosis Onset Date 05/04/22 M3 OT- IP Subjective and Pain Start: 05/05/22 13:48 Freq: Status: Active Protocol: Document 05/07/22 11:21 [facility] (Rec: 05/07/22 11:29 [facility] [id number]) OT- Subjective Occupational Therapy Visit Type Type Treatment Note Visit Start Time 11:08 Visit Stop Time 11:17 Total Visit Minutes 9 Occupational Therapy Visit Comments Patient Comments Pt not wanting to shower but agreed to talk to OT and also issued the FWW to the pt. Patient/Caregiver Goals TO go home. OT Pain Assessment Pain When Pain Assessed At Rest Pain Present Pain Present Denied Pain M4 OT- IP ADL's Start: 05/05/22 13:48 Freq: Status: Active Protocol: Document 05/06/22 09:17 [facility] (Rec: 05/06/22 12:43 [facility] [id number]) OT [id number] Comments OT Self-Feeding Comments Not at meal time. OT ADL-Toileting General Evaluation Toileting Ability Independent Comments OT Toileting Comments Pt able to do self toileting needs on his own. OT ADL-Bathing Comments OT Bathing Comments Pt too tired to attempt at this time. M5 OT- IP IADL's Start: 05/05/22 13:48 Freq: Status: Active Protocol: Document 05/05/22 11:10 [facility] (Rec: 05/05/22 14:08 [facility] [id number]) OT-Instrumental Activities of Daily Living Home Safety Awareness Home Safety Comments Pt states has decreased short term memory issues and therefore would be beneficial for someone to help remind his to incorporate his back precautions. As pt is a bit impulsive at times during mobility needs. Also suggested for pt to post signs in his house to help remind him of his precautions. M6 OT- IP Functional Cognition Start: 05/05/22 13:48 Freq: Status: Active Protocol: Document 05/07/22 11:21 [facility] (Rec: 05/07/22 11:29 [facility] [id number]) Cognitive Factors Limiting Selfcare Function Cognitive Ability Memory Description Short Term Impaired Cognitive Comments Cognitive Assessment Comments Pt continues to have STM deficits however per pt did so at baseline. Pt reminded to go over his back precaution folder daily and frequently to ensure that he is following his precautions. OT- Balance Assessment Sitting Balance and Reactions Static Sitting Balance Ability Normal Dynamic Sitting Balance Ability Good Standing Balance and Reactions Static Standing Balance Ability Good Dynamic Standing Balance Ability Fair M8 OT- IP Objective Assessments Start: 05/05/22 13:48 Freq: Status: Active Protocol: Document 05/05/22 11:10 [facility] (Rec: 05/05/22 14:08 [facility] [id number]) OT-Muscle Tone Assessment Muscle Tone WNL Yes M9 OT- IP Assessment and Plan Start: 05/05/22 13:48 Freq: Status: Active Protocol: Document 05/07/22 11:21 [facility] (Rec: 05/07/22 11:29 [facility] [id number]) OT Summary Assessment and Plan Potential Rehabilitation Potential Good Analytic Complexity at Evaluation Low Summary OT Impairments Pain,Balance,Functional Cognition,Functional Mobility, Dressing,Toileting,Bathing Progress Towards Goals Progressing Toward Goals Assessment Summary Pt now on 1L of O2 and at 93%. Able to issue pt FWW and suggest to get a shower chair stool/chair. Pt concerned about shower need and emphasized to have someone there to assist, a bath aid would be beneficial for the pt . Goals Toileting Goal Independent Bathing Goal Independent Shower Transfer Goal Independent Patient/Caregiver Education Goal Demonstrate Post-Op Precautions Days to Meet Goals 4 Frequency of Treatment Frequency Of Treatment Once a Day Treatment Plan OT Treatment Plan ADL Training,Functional Mobility,Patient/Family Education,Discharge Planning Discharge Recommendations OT Discharge Recommendations Home with Assistance,Home Health Transportation Needs at Discharge Private Vehicle
--- NOTE | 2022-05-07 11:33 | CM.DPNOTE ---
Addendum entered by JAYLEN Whiting 05/07/22 11:36: IMM provided. Order for FWW submitted. Original Note: DC Note DC home today, [facility] (requested bath aid), friend to transport. Faxed DC Summary to [facility] JW
[2022-05-07] MEDS: IBUPROFEN 600 MG TABLET PO (12:05)
--- NOTE | 2022-05-07 14:23 | PC.NURSE ---
Pt received this a.m. A&Ox3, forgetful per baseline. Pt reports pain is tolerable with prn pain medications. He is ambulating well with PT/OT and cleared by surgical MD as well as hospitalist for discharge home. Home oxygen evaluation completed by respiratory therapist at bedside this a.m. and he is cleared to discharge home without oxygen. He denies shortness of breath when ambulating around the room without wearing the nasal canula. He is reminded about spine precautions. He is given discharge paperwork and acknowledges being able to read discharge activity, medications, follow up recomendations and what to if any signs of infection or complication occur. His family (sister and niece) arrive in private vehicle to assist transporting patient home with his belongings, distributed FWW, and his vehicle parked at the hospital at approximately 1300 this afternoon.
== END 2022-05-07 13:00 | disposition home health service (06) | DRG 453 ==
PROVIDERS: Physician Assistant; Student in an Organized Health Care Education/Training Program; Admitting Provider Orthopaedic Surgery Orthopaedic Surgery of the Spine; PCP Internal Medicine; Referring Provider Orthopaedic Surgery Orthopaedic Surgery of the Spine; Visit Provider Orthopaedic Surgery Orthopaedic Surgery of the Spine
PROC: 0SG10AJ Fusion of 2 or more Lumbar Vertebral Joints with Interbody Fusion Device, Posterior Approach, Anterior Column, Open Approach (ICD-10-PCS; principal; 2022-05-04 07:45)
DX: M48.062 Spinal stenosis, lumbar region with neurogenic claudication (principal); J96.01 Acute respiratory failure with hypoxia; G97.41 Accidental puncture or laceration of dura during a procedure; M47.26 Other spondylosis with radiculopathy, lumbar region; M41.9 Scoliosis, unspecified; J43.8 Other emphysema; F41.9 Anxiety disorder, unspecified; I10 Essential (primary) hypertension; K21.9 Gastro-esophageal reflux disease without esophagitis; Z87.891 Personal history of nicotine dependence; Z20.822 Contact with and (suspected) exposure to COVID-19
CPT/HCPCS: 36415; 71045; 71275; 72100; 76000; 80048; 80053; 83605; 83735; 84145; 85014; 85018; 85025; 85379; 87040; 87070; 87205; 87633; 87635; 93005; 94618; 94762; 97116; 97162; 97165; 97530; 97535; C9803; C9290; J0171; J0330; J0690; J0692; J1100; J1170; J2250; J2405; J2704; J3010; Q9967